=== PATIENT | female | born 1940 | race Caucasian/White ===

== ENCOUNTER 2019-11-24 16:51 | Emergency (ER) | payer OTHER ==
--- OUTSIDE RECORDS SUMMARY | 2019-11-24 16:54 | XMS REPORT ---
:1940 Author Organization [facility] Address [address] [place] [address] Dr. Siddiqui [address] [place] [id number] Care Team Providers Name Role Phone Unavailable Unavailable Unavailable Problems This patient has no known problems. Allergies, Adverse Reactions, Alerts This patient has no known allergies or adverse reactions. Medications This patient has no known medications.
--- NOTE | 2019-11-24 18:51 | RAD REPORT ---
EXAM DESCRIPTION: CT - Pelvis Wo Cont - 11/24/2019 6:14 pm CLINICAL HISTORY: FALL COMPARISON: Pelvis dated 11/24/2019; Hip Left 2 View dated 11/24/2019 TECHNIQUE: Axial 2 millimeter thick images of the pelvis were obtained with sagittal and coronal rec onstruction images generated and reviewed. The CT scan was performed using dose optimization techniques as appropriate to a performed exam incl uding one or more of the following: Automated exposure control, adjustment of the mA and/or kV accord ing to patient size (this includes techniques or standardized protocols for targeted exams where dose is matched to indication/reason for exam) and use of iterative reconstruction technique. FINDINGS: Degenerative and postsurgical changes are present in the lumbar spine. Bone graft and hete rotopic bone changes are present posteriorly with fusion across the posterior elements of L4-S1. L4-5 and L5-S1 disc space narrowing is present with partial fusion across the disc levels as well. There is evidence for transverse fracture across the superior aspect of the S1 body just below the S1 superior endplate. No extension posteriorly into the lamina or posterior elements. No extension late rally into the sacral ala. SI joint degenerative changes are present. No other evidence for pelvic fracture. No proximal femur fracture seen. Degenerative changes are pres ent at each hip joint. No AVN or acute femoral head finding. Prominent degenerative change at the pubic symphysis. No periarticular mass or hematoma. No suspicious soft tissue finding. IMPRESSION: A transverse fracture is present in the S1 body just below the endplate. No extension in to the sacral ala or posterior elements. Lower lumbar degenerative and postsurgical changes with posterior element fusion and partial fusion a cross the L4-5 and L5-S1 disc spaces.
--- NOTE | 2019-11-24 18:52 | RAD REPORT ---
EXAM DESCRIPTION: RAD - Hip Left 2 View - 11/24/2019 6:10 pm CLINICAL HISTORY: PAIN, fall COMPARISON: No comparisons FINDINGS: AP and frogleg views of the left hip were obtained. There is no fracture or dislocation. L eft hip joint degenerative changes are present relatively mild for age. No AVN or focal femoral head abnormality. No soft tissue abnormality. IMPRESSION: Left hip degenerative change with no acute finding.
--- NOTE | 2019-11-24 18:54 | RAD REPORT ---
EXAM DESCRIPTION: RAD - Pelvis - 11/24/2019 6:10 pm CLINICAL HISTORY: PAIN, fall history COMPARISON: No comparisons TECHNIQUE: AP imaging of the pelvis was obtained. FINDINGS: Lower lumbar degenerative changes are present. There is postsurgical change evident. Verte brae and posterior elements appear fused. This is favored to be postsurgical rather than ankylosing s pondylitis. Moderate SI joint degenerative change present. No fracture of the bony pelvis. Bilateral hip joint de generative change present relatively mild for age. No fracture or dislocation of either proximal femu r. No femoral head AVN change. No suspicious soft tissue finding. IMPRESSION: Pelvis, hip and lumbar spine degenerative and postsurgical change as detailed. No acute finding.
--- NOTE | 2019-11-24 19:50 | EDPHYS ---
Physician Documentation [facility] Name: Leonor Galvin Age: 79 yrs Sex: Female : 1940 Arrival Date: 11/24/2019 Time: 16:55 Bed 6 Private MD: ED Physician Keegan Nation HPI: 11/24 19:54 This 79 yrs old Female presents to ER via Wheelchair with complaints of Fall tw4 Injury. 19:54 Details of fall: The patient fell from a height. Onset: The symptoms/episode tw4 began/occurred today. Associated injuries: The patient sustained no obvious injury. The patient has not experienced similar symptoms in the past. Historical: - Allergies: 17:13 Sulfa (Sulfonamide Antibiotics); ca1 17:13 Morphine; ca1 - Home Meds: 17:13 letrozole oral oral [Active]; ca1 - PMHx: 17:13 Breast Cancer; Alzheimers; ca1 - PSHx: 17:13 Mastectomy, Left; ca1 - Immunization history:: Adult Immunizations up to date, Pneumococcal vaccine status is unknown, Flu vaccine is up to date. - Coronavirus screen:: The patient has NOT traveled to [place] in the past 14 days. The patient has NOT had contact with known/suspected case of Coronavirus?. - Social history:: Smoking status: Patient denies any tobacco usage or history of. - Ebola Screening: : Patient negative for fever greater than or equal to 101.5 degrees Fahrenheit, and additional compatible Ebola Virus Disease symptoms Patient denies exposure to infectious person Patient denies travel to an Ebola-affected area in the 21 days before illness onset No symptoms or risks identified at this time. ROS: 19:54 Constitutional: Negative for fever, chills, and weight loss, Eyes: Negative for injury, tw4 pain, redness, and discharge, Cardiovascular: Negative for chest pain, palpitations, and edema, Respiratory: Negative for shortness of breath, cough, wheezing, and pleuritic chest pain, Abdomen/GI: Negative for abdominal pain, nausea, vomiting, diarrhea, and constipation, MS/Extremity: Negative for injury and deformity, Skin: Negative for injury, rash, and discoloration, Neuro: Negative for headache, weakness, numbness, tingling, and seizure. 19:54 Back: Positive for injury or acute deformity, decreased range of motion, pain at rest, pain with movement, Negative for Exam: 19:54 Constitutional: This is a well developed, well nourished patient who is awake, alert, tw4 and in no acute distress. Head/Face: Normocephalic, atraumatic. Chest/axilla: Normal chest wall appearance and motion. Nontender with no deformity. No lesions are appreciated. Cardiovascular: Regular rate and rhythm with a normal S1 and S2. No gallops, murmurs, or rubs. Normal PMI, no JVD. No pulse deficits. Respiratory: Lungs have equal breath sounds bilaterally, clear to auscultation and percussion. No rales, rhonchi or wheezes noted. No increased work of breathing, no retractions or nasal flaring. Abdomen/GI: Soft, non-tender, with normal bowel sounds. No distension or tympany. No guarding or rebound. No evidence of tenderness throughout. MS/ Extremity: Pulses equal, no cyanosis. Neurovascular intact. Full, normal range of motion. Neuro: Awake and alert, GCS 15, oriented to person, place, time, and situation. Cranial nerves II-XII grossly intact. Motor strength 5/5 in all extremities. Sensory grossly intact. Cerebellar exam normal. Normal gait. 19:54 Back: pain, is absent, ROM is normal, normal spinal alignment noted. Vital Signs: 17:13 BP 139 / 93; Pulse 114; Resp 16 S; Temp 98; Pulse Ox 100% on R/A; Weight 69.85 kg (R); ca1 Height 5 ft. (152.40 cm) (R); 19:06 BP 151 / 85; Pulse 100; Resp 16; Pulse Ox 99% ; ah 19:30 BP 134 / 82; Pulse 100; Resp 16; Pulse Ox 98% on R/A; jb4 17:13 Body Mass Index 30.08 (69.85 kg, 152.40 cm) ca1 MDM: 17:45 Patient medically screened. tw4 20:05 Differential diagnosis: abrasion, closed head injury, contusion. Data reviewed: vital tw4 signs, nurses notes. Data interpreted: Pulse oximetry: Interpretation: normal. Counseling: I had a detailed discussion with the patient and/or guardian regarding: the historical points, exam findings, and any diagnostic results supporting the discharge/admit diagnosis. Special discussion: I discussed with the patient/guardian in detail that at this point there is no indication for admission to the hospital. It is understood, however, that if the symptoms persist or worsen the patient needs to return immediately for re-evaluation. 11/24 17:45 Order name: Hip Left 2 View XRAY tw4 11/24 17:45 Order name: Tib Fib Left XRAY tw4 11/24 18:03 Order name: Pelvis XRAY tw4 11/24 18:04 Order name: Pelvis Wo Cont CT tw4 11/24 19:14 Order name: Pelvis EDMS 11/24 19:22 Order name: Pelvis Wo Cont EDMS Administered Medications: 19:45 Drug: traMADol 50 mg {Note: Rass score 0.} Route: PO; 4 20:07 Follow up: Response: No adverse reaction; RASS: Alert and Calm (0) 4 Disposition: 11/24/19 19:50 Discharged to Home. Impression: Fracture of sacrum. - Condition is Stable. - Discharge Instructions: Vertebral Fracture, [id number]. - Prescriptions for Tylenol- Codeine #3 300-30 mg Oral Tablet - take 2 tablet by ORAL route every 6 hours As needed; 6 tablet. Tramadol 50 mg Oral Tablet - take 1 tablet by ORAL route every 8 hours as needed; 12 tablet. - Medication Reconciliation Form, Thank You Letter, Antibiotic Education, Prescription Opioid Use form. - Follow up: Private Physician; When: Upon discharge from the Emergency Department; Reason: If symptoms return, Recheck today's complaints, Continuance of care, Re-evaluation by your physician. - Problem is new. - Symptoms have improved. Signatures: Dispatcher [facility] Amador Durham RN RN jb4 Keegan Nation MD MD tw4 Shana Castellon RN RN ca1 Corrections: (The following items were deleted from the chart) 20:07 19:50 11/24/2019 19:50 Discharged to Home. Impression: Fracture of sacrum. Condition is jb4 Stable. Forms are Medication Reconciliation Form, Thank You Letter, Antibiotic Education, Prescription Opioid Use. Follow up: Private Physician; When: Upon discharge from the Emergency Department; Reason: If symptoms return, Recheck today's complaints, Continuance of care, Re-evaluation by your physician. Problem is new. Symptoms have improved. 4
--- NOTE | 2019-11-24 19:50 | ER ---
Nurse's Notes [facility] Name: Leonor Galvin Age: 79 yrs Sex: Female : 1940 Arrival Date: 11/24/2019 Time: 16:55 Bed 6 Private MD: Diagnosis: Fracture of sacrum Presentation: 11/24 17:06 Presenting complaint: Child states: On the Nov. she had a mechanical fell and ca1 hit the ground. She denied hitting her head. She has been sore, but yesterday and today, the pain has gotten worse and pain medications are not working anymore. Now, she is c/o of L hip and L leg pain. Transition of care: patient was not received from another setting of care. Onset of symptoms was November 24, 2019. Risk Assessment: Do you want to hurt yourself or someone else? Patient reports no desire to harm self or others. Initial Sepsis Screen: Does the patient meet any 2 criteria? No. Patient's initial sepsis screen is negative. Does the patient have a suspected source of infection? No. Patient's initial sepsis screen is negative. Care prior to arrival: None. 17:06 Method Of Arrival: Wheelchair ca1 17:06 Acuity: DARON 4 ca1 Historical: - Allergies: 17:13 Sulfa (Sulfonamide Antibiotics); ca1 17:13 Morphine; ca1 - Home Meds: 17:13 letrozole oral oral [Active]; ca1 - PMHx: 17:13 Breast Cancer; Alzheimers; ca1 - PSHx: 17:13 Mastectomy, Left; ca1 - Immunization history:: Adult Immunizations up to date, Pneumococcal vaccine status is unknown, Flu vaccine is up to date. - Coronavirus screen:: The patient has NOT traveled to [place] in the past 14 days. The patient has NOT had contact with known/suspected case of Coronavirus?. - Social history:: Smoking status: Patient denies any tobacco usage or history of. - Ebola Screening: : Patient negative for fever greater than or equal to 101.5 degrees Fahrenheit, and additional compatible Ebola Virus Disease symptoms Patient denies exposure to infectious person Patient denies travel to an Ebola-affected area in the 21 days before illness onset No symptoms or risks identified at this time. Screenin:49 Abuse screen: Denies threats or abuse. Nutritional screening: No deficits noted. Tuberculosis screening: No symptoms or risk factors identified. Fall Risk Secondary diagnosis (15 points) Alzheimer's, Gait- Weak (10 pts.). Total Quiles Fall Scale indicates No Risk (0-24 pts). Assessment: 17:43 General: Appears uncomfortable, Behavior is calm, cooperative. Pain: Complains of pain ah in pain in left hip and down left leg Pain radiates to left leg Pain currently is 8 out of 10 on a pain scale. Quality of pain is described as shooting, throbbing, Pain began November 15. Neuro: Level of Consciousness is awake, alert, obeys commands, Oriented to person, place, Recreation Engineer are equal bilaterally Gait is unsteady, Speech is normal, Facial symmetry appears normal, Pupils are PERRLA. Cardiovascular: Heart tones S1 S2 present Capillary refill < 3 seconds Pulses are palpable in right radial artery, right dorsalis pedis artery, left radial artery and left dorsalis pedis artery. Respiratory: Airway is patent is compromised Breath sounds are clear bilaterally. GI: No signs and/or symptoms were reported involving the gastrointestinal system. : No signs and/or symptoms were reported regarding the genitourinary system. EENT: No signs and/or symptoms were reported regarding the EENT system. Derm: Skin is intact, is healthy with good turgor. Musculoskeletal: Circulation, motion, and sensation intact. Capillary refill < 3 seconds. Injury Description:. 19:05 Reassessment: Patient appears in no apparent distress at this time. Patient and/or jb4 family updated on plan of care and expected duration. Pain level reassessed. Patient is alert, oriented x 3, equal unlabored respirations, skin warm/dry/pink. Patient denies pain at this time. 20:00 Reassessment: Patient appears in no apparent distress at this time. Patient and/or jb4 family updated on plan of care and expected duration. Pain level reassessed. Patient is alert, oriented x 3, equal unlabored respirations, skin warm/dry/pink. Pt's daughter verbalized understanding of d/c and follow up instructions. Denies questions or concerns. Assisted pt to car via wheelchair. Patient denies pain at this time. Vital Signs: 17:13 BP 139 / 93; Pulse 114; Resp 16 S; Temp 98; Pulse Ox 100% on R/A; Weight 69.85 kg (R); ca1 Height 5 ft. (152.40 cm) (R); 19:06 BP 151 / 85; Pulse 100; Resp 16; Pulse Ox 99% ; ah 19:30 BP 134 / 82; Pulse 100; Resp 16; Pulse Ox 98% on R/A; jb4 17:13 Body Mass Index 30.08 (69.85 kg, 152.40 cm) ca1 ED Course: 16:55 Patient arrived in ED. fj1 17:10 Triage completed. ca1 17:13 Arm band placed on right wrist. [facility] 17:24 Beverly Telles, RN is Primary Nurse. 17:35 Keegan Nation MD is Attending Physician. tw4 17:43 Patient has correct armband on for positive identification. Bed in low position. Call sv light in reach. Adult w/ patient. 19:02 Primary Nurse role handed off by Beverly Telles, RN jb 19:02 Amador Durham RN is Primary Nurse. jb4 19:07 Hip Left 2 View XRAY In Process Unspecified. EDMS 20:06 No provider procedures requiring assistance completed. Patient did not have IV access jb4 during this emergency room visit. Administered Medications: 19:45 Drug: traMADol 50 mg {Note: Rass score 0.} Route: PO; jb4 20:07 Follow up: Response: No adverse reaction; RASS: Alert and Calm (0) jb4 Outcome: 19:50 Discharge ordered by . tw4 20:06 Discharged to home via wheelchair, with family. jb4 20:06 Condition: stable 20:06 Discharge instructions given to patient, family, Instructed on discharge instructions, follow up and referral plans. Demonstrated understanding of instructions, follow-up care, medications, Prescriptions given X 2. 20:07 Patient left the ED. jb4 Signatures: Dispatcher [employer] [facility] Mena Steinberg RN RN Amador Durham RN RN [facility] Keegan Nation MD MD [facility] Shana Castellon RN RN ca1 James, Frank [facility] Beverly Telles RN RN
[2019-11-24] MEDS ORDERED: TRAMADOL HCL 50 MG TAB ONE (19:51)
[2019-11-24 20:35] VITALS: TEMP 98
[2019-11-24 20:38] VITALS: BP 134/82; O2SAT 98
== END 2019-11-24 20:07 | disposition home or self-care (01) ==
LOC: ER 16:51
DX: S32.10XA Unspecified fracture of sacrum, initial encounter for closed fracture (principal); W19.XXXA Unspecified fall, initial encounter; Y93.9 Activity, unspecified; Y92.9 Unspecified place or not applicable; G30.9 Alzheimer's disease, unspecified; F02.80 Dementia in other diseases classified elsewhere, unspecified severity, without behavioral disturbance, psychotic disturbance, mood disturbance, and anxiety; Z85.3 Personal history of malignant neoplasm of breast; Z90.12 Acquired absence of left breast and nipple
CPT/HCPCS: 72170; 72192; 99283

== ENCOUNTER 2019-12-04 08:59 | Inpatient (IN) | payer OTHER ==
--- OUTSIDE RECORDS SUMMARY | 2019-12-04 09:02 | XMS REPORT ---
:1940 [facility] Organization [facility] Address [address] [place] [address] Dr. Siddiqui [address] [place] [address] Care Team Providers Name Role Phone Unavailable Unavailable Unavailable Problems This patient has no known problems. Allergies, Adverse Reactions, Alerts This patient has no known allergies or adverse reactions. Medications This patient has no known medications.
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
--- NOTE | 2019-12-04 09:50 | ER ---
Nurse's Notes [facility] Name: Leonor Galvin Age: 79 yrs Sex: Female : 1940 Arrival Date: 12/04/2019 Time: 09:03 Bed 5 Private MD: Aniket Downey E Diagnosis: Dyspnea;Pneumonia due to other specified bacteria;Fever, unspecified;Elevated white blood cell count Presentation: 12/04 09:10 Chief complaint: Patient's son or daughter states: "she had a fever of 101.6 F this aa5 morning and she had peed all over herself, she's also had a cough for the last few days". 09:10 Coronavirus screen: The patient has NOT traveled to [place] in the past 14 days. The aa5 patient has NOT had contact with known and/or suspected case of Coronavirus. Ebola Screen: Patient negative for fever greater than or equal to 101.5 degrees Fahrenheit, and additional compatible Ebola Virus Disease symptoms. Initial Sepsis Screen: Does the patient meet any 2 criteria? HR > 90 bpm. Does the patient have a suspected source of infection? Yes: Productive cough/pneumonia. Risk Assessment: Do you want to hurt yourself or someone else? Unable to obtain. 09:10 Method Of Arrival: Wheelchair aa5 09:10 Acuity: DARON 3 aa5 09:10 Onset of symptoms was December 04, 2019. sv Historical: - Allergies: 09:16 Morphine; aa5 09:16 Sulfa (Sulfonamide Antibiotics); aa5 - PMHx: 09:16 Alzheimers; breast cancer; S1 fracture; aa5 - PSHx: 09:16 Mastectomy, Left; aa5 - Immunization history:: Pneumococcal vaccine status is unknown, Flu vaccine is up to date. - Social history:: Smoking status: Patient denies any tobacco usage or history of. Screenin:25 Abuse screen: Denies threats or abuse. Denies injuries from another. Nutritional sv screening: No deficits noted. Tuberculosis screening: No symptoms or risk factors identified. Fall Risk None identified. Assessment: 09:40 General: Appears in no apparent distress. uncomfortable, well developed, Behavior is sv calm, cooperative, appropriate for age. Pain: Complains of pain in chest Pain currently is 5 out of 10 on a pain scale. Is intermittent, Aggravated by coughing. Neuro: Level of Consciousness is awake, alert, obeys commands, Oriented to person, place, time, situation, Moves all extremities. Full function Gait is steady. Cardiovascular: Heart tones S1 S2 present Patient's skin is warm and dry. Rhythm is sinus tachycardia. Respiratory: Reports shortness of breath on exertion cough that is productive, pain with cough Airway is patent Respiratory effort is even, unlabored, Respiratory pattern is regular, symmetrical, Breath sounds are coarse bilaterally. Derm: Skin is intact, Skin is pink, warm \\T\\ dry. Musculoskeletal: Range of motion: intact in all extremities. 10:10 Reassessment: Patient appears in no apparent distress at this time. Patient and/or sv family updated on plan of care and expected duration. Pain level reassessed. Patient is alert, oriented x 3, equal unlabored respirations, skin warm/dry/pink. 11:13 Reassessment: Patient appears in no apparent distress at this time. Patient and/or sv family updated on plan of care and expected duration. Pain level reassessed. Patient is alert, oriented x 3, equal unlabored respirations, skin warm/dry/pink. Vital Signs: 09:10 BP 116 / 64; Pulse 103; Resp 16 S; Temp 99.6(O); Pulse Ox 96% on R/A; aa5 09:40 Weight 69 kg; sv 11:10 BP 102 / 75; Pulse 112; Resp 13; Pulse Ox 95% on R/A; sv ED Course: 09:03 Patient arrived in ED. mr 09:03 Aniket Downey MD is Private Physician. mr 09:03 Johnson Casillas MD is Attending Physician. linda 09:10 Arm band placed on. aa5 09:15 Triage completed. aa5 09:40 Patient has correct armband on for positive identification. Placed in gown. Bed in low sv position. Call light in reach. Side rails up X2. Adult w/ patient. millwright helper on. Pulse ox on. NIBP on. Door closed. Warm blanket given. Head of bed elevated. 09:48 Manoj Gracia MD is Hospitalizing Provider. linda 09:55 First set of blood cultures drawn by mo. Inserted saline lock: 22 gauge in right sv forearm, using aseptic technique. ,using aseptic technique. diffusics Blood collected. Flushed right forearm with 5 ml normal saline. 09:57 X-ray(s) taken. sv 10:01 Mena Steinberg, RN is Primary Nurse. sv 10:06 XRAY Chest (1 view) In Process Unspecified. EDMS 10:10 Second set of blood cultures drawn by mo. sv 10:12 EKG done, by environmental field services technician. reviewed by Johnson Casillas MD. at1 10:52 Flu and/or RSV swab sent to lab. jb1 11:13 Awaiting bed assignment. sv 11:27 No provider procedures requiring assistance completed. Patient admitted, IV remains in sv place. intact. Administered Medications: 10:10 Drug: SOLU-Medrol 125 mg Route: IVP; Site: right forearm; sv 10:56 Follow up: Response: No adverse reaction sv 10:10 Drug: Xopenex 3.75 mg Route: Inhalation; sv 10:12 Drug: Pepcid 20 mg Route: IVP; Site: right forearm; sv 10:58 Follow up: Response: No adverse reaction sv 10:14 Drug: Rocephin 2 grams Route: IV; Rate: per protocol; Site: right forearm; sv 10:18 Follow up: Response: No adverse reaction; IV Status: Completed infusion; IV Intake: 20mlsv 10:20 Drug: Zithromax 500 mg Route: IVPB; Infused Over: 1 hrs; Site: right forearm; sv 11:20 Follow up: Response: No adverse reaction; IV Status: Completed infusion; IV Intake: sv 250ml 10:30 Drug: NS 0.9% (30 ml/kg) 30 ml/kg Route: IV; Rate: bolus; Site: right forearm; sv 10:47 Drug: Tussionex Pennkinetic ER 5 ml Route: PO; sv 10:58 Follow up: Response: No adverse reaction sv Intake: 10:18 IV: 20ml; Total: 20ml. sv 11:20 IV: 250ml; Total: 270ml. sv Outcome: 09:49 Decision to Hospitalize by Provider. linda 11:27 Admitted to Tele accompanied by tech, family with patient, via stretcher, room 230, sv with chart, Report called to Milagro SUE 11:27 Condition: stable 11:27 Instructed on the need for admit. 11:37 Patient left the ED. sv Signatures: Dispatcher [employer] EDMS Jhonny Batista jb1 Mena Steinberg, LINETTE RN Johnson Hernandez MD MD cha Rivera, Suzanne mr Priscilla Fairbanks, LINETTE RN aa5 Kenzie Mcneal, pharmacy intake technician EK Tat1
--- NOTE | 2019-12-04 09:51 | EDPHYS ---
Physician Documentation [facility] Name: Leonor Galvin Age: 79 yrs Sex: Female : 1940 Arrival Date: 12/04/2019 Time: 09:03 Bed 5 Private MD: Aniket Downey E ED Physician Johnson Casillas HPI: 12/04 09:42 This 79 yrs old Female presents to ER via Wheelchair with complaints of linda Fever, Cough. 09:42 The patient reports fever, not measured (subjective). Onset: The symptoms/episode linda began/occurred 2 day(s) ago. Modifying factors: there are no obvious modifying factors. Associated signs and symptoms: Pertinent positives: chills, cough. Severity of symptoms: At their worst the symptoms were mild moderate in the emergency department the symptoms are unchanged. The patient has not experienced similar symptoms in the past. Historical: - Allergies: 09:16 Morphine; aa5 09:16 Sulfa (Sulfonamide Antibiotics); aa5 - PMHx: 09:16 Alzheimers; breast cancer; S1 fracture; aa5 - PSHx: 09:16 Mastectomy, Left; aa5 - Immunization history:: Pneumococcal vaccine status is unknown, Flu vaccine is up to date. - Social history:: Smoking status: Patient denies any tobacco usage or history of. ROS: 09:43 Constitutional: Negative for fever, chills, and weight loss, Eyes: Negative for injury, linda pain, redness, and discharge, ENT: Negative for injury, pain, and discharge, Neck: Negative for injury, pain, and swelling, Cardiovascular: Negative for chest pain, palpitations, and edema, Abdomen/GI: Negative for abdominal pain, nausea, vomiting, diarrhea, and constipation, Back: Negative for injury and pain, : Negative for injury, bleeding, discharge, and swelling, MS/Extremity: Negative for injury and deformity, Skin: Negative for injury, rash, and discoloration, Neuro: Negative for headache, weakness, numbness, tingling, and seizure, Psych: Negative for depression, anxiety, suicide ideation, homicidal ideation, and hallucinations, Allergy/Immunology: Negative for hives, rash, and allergies, Endocrine: Negative for neck swelling, polydipsia, polyuria, polyphagia, and marked weight changes, Hematologic/Lymphatic: Negative for swollen nodes, abnormal bleeding, and unusual bruising. 09:43 Respiratory: Positive for cough, shortness of breath, at rest. 09:43 MS/extremity: Negative for acute changes. Exam: 09:43 Head/Face: Normocephalic, atraumatic. Eyes: Pupils equal round and reactive to light, linda extra-ocular motions intact. Lids and lashes normal. Conjunctiva and sclera are non-icteric and not injected. Cornea within normal limits. Periorbital areas with no swelling, redness, or edema. ENT: Nares patent. No nasal discharge, no septal abnormalities noted. Tympanic membranes are normal and external auditory canals are clear. Oropharynx with no redness, swelling, or masses, exudates, or evidence of obstruction, uvula midline. Mucous membranes moist. Neck: Trachea midline, no thyromegaly or masses palpated, and no cervical lymphadenopathy. Supple, full range of motion without nuchal rigidity, or vertebral point tenderness. No Meningismus. Chest/axilla: Normal chest wall appearance and motion. Nontender with no deformity. No lesions are appreciated. Abdomen/GI: Soft, non-tender, with normal bowel sounds. No distension or tympany. No guarding or rebound. No evidence of tenderness throughout. Back: No spinal tenderness. No costovertebral tenderness. Full range of motion. Female : Normal external genitalia. Skin: Warm, dry with normal turgor. Normal color with no rashes, no lesions, and no evidence of cellulitis. MS/ Extremity: Pulses equal, no cyanosis. Neurovascular intact. Full, normal range of motion. Neuro: Awake and alert, GCS 15, oriented to person, place, time, and situation. Cranial nerves II-XII grossly intact. Motor strength 5/5 in all extremities. Sensory grossly intact. Cerebellar exam normal. Normal gait. Psych: Awake, alert, with orientation to person, place and time. Behavior, mood, and affect are within normal limits. 09:43 Constitutional: The patient appears febrile. 09:43 Cardiovascular: Rate: tachycardic, Rhythm: regular, Pulses: Pulses are 4+ in bilateral radial, brachial, femoral, popliteal, posterior tibial and and dorsalis pedis arteries.. Heart sounds: normal, normal S1and S2, no S3 or S4, no murmur, no rub, no gallop, Edema: is not appreciated, JVD: is not appreciated. Vital Signs: 09:10 BP 116 / 64; Pulse 103; Resp 16 S; Temp 99.6(O); Pulse Ox 96% on R/A; aa5 09:40 Weight 69 kg; sv 11:10 BP 102 / 75; Pulse 112; Resp 13; Pulse Ox 95% on R/A; sv MDM: 09:[address] [facility] 09:43 Data reviewed: vital signs, nurses notes, lab test result(s), EKG, radiologic studies, linda plain films. 12/04 09:39 Order name: Basic Metabolic Panel; Complete Time: 10:57 [facility] 12/04 09:39 Order name: CBC with Diff; Complete Time: 10:57 [facility] 12/04 09:39 Order name: LFT's; Complete Time: 10:57 [facility] 12/04 09:39 Order name: Magnesium; Complete Time: 10:57 [facility] 12/04 09:39 Order name: NT PRO-BNP; Complete Time: 10:57 [facility] 12/04 09:39 Order name: PT-INR; Complete Time: 10:57 [facility] 12/04 09:39 Order name: Troponin (emerg Dept Use Only); Complete Time: 10:57 [facility] 12/04 09:39 Order name: Amylase, Serum; Complete Time: 10:57 [facility] 12/04 09:39 Order name: Blood Culture Adult (2) [facility] 12/04 09:39 Order name: Ckmb; Complete Time: 10:57 [facility] 12/04 09:39 Order name: CPK; Complete Time: 10:57 [facility] 12/04 09:39 Order name: Lactate; Complete Time: 10:57 [facility] 12/04 09:39 Order name: Lipase; Complete Time: 10:57 [facility] 12/04 09:39 Order name: Procalcitonin; Complete Time: 10:57 [facility] 12/04 09:39 Order name: XRAY Chest (1 view); Complete Time: 10:57 [facility] 12/04 09:39 Order name: Urine Microscopic Only [facility] 12/04 10:10 Order name: PTT, Activated Partial Thromb; Complete Time: 10:57 EDMS 12/04 10:44 Order name: Urinalysis EDTX 12/04 10:44 Order name: CBC with Automated Diff EDMS 12/04 10:44 Order name: CBC with Automated Diff EDMS 12/04 10:44 Order name: Comprehensive Metabolic Panel [facility] 12/04 10:44 Order name: Comprehensive Metabolic Panel [facility] 12/04 10:44 Order name: Influenza Screen (A [facility] 12/04 09:39 Order name: EKG; Complete Time: 09:42 [facility] 12/04 09:39 Order name: Cardiac monitoring; Complete Time: 09:49 [facility] 12/04 09:39 Order name: EKG - Nurse/Tech; Complete Time: 09:49 [facility] 12/04 09:39 Order name: IV Saline Lock; Complete Time: 10:27 [facility] 12/04 09:39 Order name: Labs collected and sent; Complete Time: 10:27 [facility] 12/04 09:39 Order name: O2 Per Protocol; Complete Time: 09:49 [facility] 12/04 09:39 Order name: O2 Sat Monitoring; Complete Time: 09:49 [facility] 12/04 09:39 Order name: IV Saline Lock - Large Bore; Complete Time: 10:27 [facility] 12/04 10:43 Order name: Heart Healthy EDTX Administered Medications: 10:10 Drug: SOLU-Medrol 125 mg Route: IVP; Site: right forearm; sv 10:56 Follow up: Response: No adverse reaction sv 10:10 Drug: Xopenex 3.75 mg Route: Inhalation; sv 10:12 Drug: Pepcid 20 mg Route: IVP; Site: right forearm; sv 10:58 Follow up: Response: No adverse reaction sv 10:14 Drug: Rocephin 2 grams Route: IV; Rate: per protocol; Site: right forearm; sv 10:18 Follow up: Response: No adverse reaction; IV Status: Completed infusion; IV Intake: 20mlsv 10:20 Drug: Zithromax 500 mg Route: IVPB; Infused Over: 1 hrs; Site: right forearm; sv 11:20 Follow up: Response: No adverse reaction; IV Status: Completed infusion; IV Intake: sv 250ml 10:30 Drug: NS 0.9% (30 ml/kg) 30 ml/kg Route: IV; Rate: bolus; Site: right forearm; sv 10:47 Drug: Tussionex Pennkinetic ER 5 ml Route: PO; sv 10:58 Follow up: Response: No adverse reaction sv Disposition: 12/04/19 09:49 Hospitalization ordered by Manoj Gracia for Inpatient Admission. Preliminary diagnosis are Dyspnea, Pneumonia due to other specified bacteria, Fever, unspecified, Elevated white blood cell count. - Bed requested for Telemetry/MedSurg (Inpatient). - Status is Inpatient Admission. sv - Condition is Fair. - Problem is new. - Symptoms have improved. Signatures: Dispatcher [employer] EDTX Mena Steinberg RN RN sv Woody, Diana, RN RN dw Anderson, Corey, MD MD cha Calderon, Audri RN RN aa5 Corrections: (The following items were deleted from the chart) 10:09 09:41 PTT, ACTIVATED+COAG.LAB.BRZ ordered. EDTX EDMS 10:27 09:39 Accucheck ordered. [facility] 11:20 09:49 Hospitalization Ordered by Manoj Gracia MD for Inpatient Admission. Preliminary diagnosis is Dyspnea; Pneumonia due to other specified bacteria; Fever, unspecified. Bed requested for Telemetry/MedSurg (Inpatient). Status is Inpatient Admission. Condition is Fair. Problem is new. Symptoms have improved. [facility] 11:28 11:20 12/04/2019 09:49 Hospitalization Ordered by Manoj Gracia MD for Inpatient linda Admission. Preliminary diagnosis is Dyspnea; Pneumonia due to other specified bacteria; Fever, unspecified. Bed requested for Telemetry/MedSurg (Inpatient). Status is Inpatient Admission. Condition is Fair. Problem is new. Symptoms have improved. 11:37 11:28 12/04/2019 09:49 Hospitalization Ordered by Manoj Gracia MD for Inpatient sv Admission. Preliminary diagnosis is Dyspnea; Pneumonia due to other specified bacteria; Fever, unspecified; Elevated white blood cell count. Bed requested for Telemetry/MedSurg (Inpatient). Status is Inpatient Admission. Condition is Fair. Problem is new. Symptoms have improved. linda
[2019-12-04] MEDS ORDERED: METHYLPREDNISOLONE 125 MG INJ ONE (09:53)
[2019-12-04] MEDS ORDERED: LEVALBUTEROL 1.25 MG/3 ML NEB ONE (09:53)
[2019-12-04] MEDS ORDERED: FAMOTIDINE 20 MG/2 ML VIAL IV ONE ×2 (09:53→09:54)
[2019-12-04] MEDS ORDERED: CEFTRIAXONE/SWI 1gm 1 GM/10 ML SYR ONE ×2 (09:54→10:28)
[2019-12-04] MEDS ORDERED: AZITHROMYCIN IV 500 MG in NA CHLORIDE 0.9% 250 ML IVPB ONE (10:00)
[2019-12-04] MEDS ORDERED: CEFTRIAXONE/SWI 2gm 2 GM/20 ML SYR IV ONE (10:00)
[2019-12-04 10:08] LABS: Absolute Lymphocytes (CBC) 1.7 K/uL (0.7-4.9); Basophils % 0.2 % (0-1.3); Hematocrit 39.1 % (36.0-45.0); Lymphocytes % 12.2 % (15.3-44.8); MPV 7.3 fL (7.6-11.3); RBC Red Blood Cell Count 4.08 M/uL (3.86-4.86)
[2019-12-04 10:16] LABS: Protime INR 1.22
--- NOTE | 2019-12-04 10:22 | RAD REPORT ---
EXAM DESCRIPTION: RAD - Chest Single View - 12/04/2019 10:04 am CLINICAL HISTORY: COUGH Chest pain. COMPARISON: No comparisons FINDINGS: Portable technique limits examination quality. The lungs are grossly clear. The heart is normal in size. No displaced fractures. IMPRESSION: No acute intrathoracic process suspected.
[2019-12-04 10:32] LABS: ALT/SGPT 30 U/L (12-78); AST/SGOT 41 U/L (15-37); Albumin 3.6 g/dL (3.4-5.0); Alkaline Phosphatase 93 U/L (45-117); Amylase Level 45 U/L (25-115); BUN Blood Urea Nitrogen 15 mg/dL (7-18); Bicarbonate 24 mmol/L (21-32); Bilirubin Direct 0.2 mg/dL (0-0.2); Bilirubin Total 0.8 mg/dL (0.2-1.0); CKMB Creatine Kinase MB 2.9 ng/mL (0.3-3.6); Creatine Phosphokinase 398 U/L (26-192); Glucose Level 170 mg/dL (74-106); Lipase 195 U/L (73-393); Magnesium 2.1 mg/dL (1.8-2.4); NT PRO-BNP 435 pg/mL (<450); Potassium 3.5 mmol/L (3.5-5.1); Protein, Total 8.8 g/dL (6.4-8.2); Sodium Level 135 mmol/L (136-145); Troponin (Emerg Dept Use Only) < 0.02 ng/mL (0.0-0.045)
[2019-12-04] MEDS ORDERED: NA CHLORIDE 0.9% 2,000 ML ONE (10:34)
[2019-12-04] MEDS ORDERED: ONDANSETRON 4 MG/2 ML VIAL IV PRN (10:38)
[2019-12-04] MEDS ORDERED: HYDROCODONE/CHLORPHEN 5 ML/OSYR ONE (10:49)
--- NOTE | 2019-12-04 11:30 | EKG ---
Test Date: 2019-12-04 Test Time: 09:52:31 Cable Respooler: KIRSTEN MEASUREMENT RESULTS: Intervals: Rate: 93 IL: 172 QRSD: 76 QT: 374 QTc: 465 [place]: P: 35 IL: 172 QRS: -14 T: 38 INTERPRETIVE STATEMENTS: Normal sinus rhythm Normal ECG No previous ECG available for comparison Electronically Signed On 12-04-19 11:29:08 ROUTE CONTRACTOR by Storm Akhtar
--- NOTE | 2019-12-04 12:57 | P.HP ---
Certification for Inpatient Patient admitted to: Inpatient With expected LOS: >2 Midnights Patient will require the following post-hospital care: None Practitioner: I am a practitioner with admitting privileges, knowledge of patient current condition, hospital course, and medical plan of care. Services: Services provided to patient in accordance with Admission requirements found in Title 42 Section 412.3 of the Code of Federal Regulations Patient History Date of Service: 12/04/19 Reason for admission: Fever , cough History of Present Illness: 79 yrs old Female with past medical history of Alzheimer's dementia presented with fever and cough which has been going on for the last 3 days and has been progressively worsening and was brought to ER . Fever is subjective intermittent, not associated with chills, cough is productive with mucoid expectoration, denies any hemoptysis . The patient is a poor historian because of the dementia. Hence most of the history is obtained from the chart review and also talking to the ER physician and the family. No sick contacts No recent travel Patient was assessed in the ER and was found to have leukocytosis, elevated procalcitonin and clinically suspicious of pneumonia right lower lobe and was admitted for further management. Allergies morphine Allergy (Verified 12/04/19 09:54) UNK Sulfa (Sulfonamide Antibiotics) Allergy (Verified 12/04/19 09:54) UNK Home medications list reviewed: Yes - Past Medical/Surgical History Has patient received pneumonia vaccine in the past: Yes Past Medical History: Reviewed- Non-Contributory -: Dementia -: Back pain Past Surgical History: Reviewed- Non-Contributory -: Cervical neck surgery -: Knee replacement - Family History Family History: Reviewed- Non-Contributory - Social History Smoking Status: Never smoker Review of Systems 10-point ROS is otherwise unremarkable Physical Examination - Vital Signs Temperature: 99.6 F Blood Pressure: 102/75 Pulse: 112 Respirations: 13 - Physical Exam General: Alert, In no apparent distress, Demented HEENT: Atraumatic, Normocephalic Neck: Supple, 2+ carotid pulse no bruit Respiratory: Diminished, Crackles/rales, Expiratory wheezes Cardiovascular: No edema, Regular rate/rhythm Capillary refill: <2 Seconds Gastrointestinal: Soft and benign, W/out hepatosplenomegaly Musculoskeletal: No clubbing, No swelling Integumentary: No rashes Neurological: Normal gait, Normal strength at 5/5 x4 extr Lymphatics: No axilla or inguinal lymphadenopathy Urinary: Other (No bladder distention) External genitalia: Deferred Rectal: Deferred - Studies Laboratory Data (last 24 hrs) 12/04/19 09:55: APTT Cancelled 12/04/19 09:55: PT 14.3 H, INR 1.22, APTT 28.9 12/04/19 09:55: WBC 14.2 H, Hgb 12.9, Hct 39.1, Plt Count 244 12/04/19 09:55: Sodium 135 L, Potassium 3.5, BUN 15, Creatinine 1.04, Glucose 170 H, Magnesium 2.1, Total Bilirubin 0.8, AST 41 H, ALT 30, Alkaline Phosphatase 93, Amylase 45, Lipase 195 Laboratory Last Values WBC 14.2 K/uL (4.3-10.9) H 12/04/19 09:55 RBC 4.08 M/uL (3.86-4.86) 12/04/19 09:55 Hgb 12.9 g/dL (12.0-15.0) 12/04/19 09:55 Hct 39.1 % (36.0-45.0) 12/04/19 09:55 MCV 95.9 fL (80-100) 12/04/19 09:55 MCH 31.7 pg (27.0-35.0) 12/04/19 09:55 MCHC 33.0 g/dL (32.0-36.0) 12/04/19 09:55 RDW 13.8 % (12.1-15.2) 12/04/19 09:55 Plt Count 244 K/uL (152-406) 12/04/19 09:55 MPV 7.3 fL (7.6-11.3) L 12/04/19 09:55 Neutrophils % 79.7 % (41.7-73.7) H 12/04/19 09:55 Lymphocytes % 12.2 % (15.3-44.8) L 12/04/19 09:55 Monocytes % 7.9 % (3.3-12.3) 12/04/19 09:55 Eosinophils % 0.0 % (0-4.4) 12/04/19 09:55 Basophils % 0.2 % (0-1.3) 12/04/19 09:55 Absolute Neutrophils 11.4 K/uL (1.8-8.0) H 12/04/19 09:55 Absolute Lymphocytes 1.7 K/uL (0.7-4.9) 12/04/19 09:55 Absolute Monocytes 1.1 K/uL (0.1-1.3) 12/04/19 09:55 Absolute Eosinophils 0.0 K/uL (0-0.5) 12/04/19 09:55 Absolute Basophils 0.0 K/uL (0-0.5) 12/04/19 09:55 PT 14.3 SECONDS (9.5-12.5) H 12/04/19 09:55 INR 1.22 12/04/19 09:55 APTT 28.9 SECONDS (24.3-36.9) 12/04/19 09:55 Sodium 135 mmol/L (136-145) L 12/04/19 09:55 Potassium 3.5 mmol/L (3.5-5.1) 12/04/19 09:55 Chloride 100 mmol/L (98-107) 12/04/19 09:55 Carbon Dioxide 24 mmol/L (21-32) 12/04/19 09:55 BUN 15 mg/dL (7-18) 12/04/19 09:55 Creatinine 1.04 mg/dL (0.55-1.3) 12/04/19 09:55 Estimated GFR 51 mL/min (=/>90) L 12/04/19 09:55 Glucose 170 mg/dL (74-106) H 12/04/19 09:55 Lactic Acid 1.9 mmol/L (0.4-2.0) 12/04/19 09:55 Calcium 8.9 mg/dL (8.5-10.1) 12/04/19 09:55 Magnesium 2.1 mg/dL (1.8-2.4) 12/04/19 09:55 Total Bilirubin 0.8 mg/dL (0.2-1.0) 12/04/19 09:55 Direct Bilirubin 0.2 mg/dL (0-0.2) 12/04/19 09:55 AST 41 U/L (15-37) H 12/04/19 09:55 ALT 30 U/L (12-78) 12/04/19 09:55 Alkaline Phosphatase 93 U/L (45-117) 12/04/19 09:55 Creatine Kinase 398 U/L (26-192) H 12/04/19 09:55 CK-MB (CK-2) 2.9 ng/mL (0.3-3.6) 12/04/19 09:55 Rapid Troponin I < 0.02 ng/mL (0.0-0.045) 12/04/19 09:55 NT-Pro-B Natriuret Pep 435 pg/mL (<450) 12/04/19 09:55 Serum Total Protein 8.8 g/dL (6.4-8.2) H 12/04/19 09:55 Albumin 3.6 g/dL (3.4-5.0) 12/04/19 09:55 Globulin 5.2 g/dL (2.3-3.5) H 12/04/19 09:55 Albumin/Globulin Ratio 0.7 (1.1-1.8) L 12/04/19 09:55 Amylase 45 U/L (25-115) 12/04/19 09:55 Lipase 195 U/L (73-393) 12/04/19 09:55 Procalcitonin 0.59 ng/mL (<0.50) H 12/04/19 09:55 Assessment and Plan - Problems (Diagnosis) (1) Right lower lobe pneumonia Current Visit: Yes Status: Acute Qualifiers: Pneumonia type: due to unspecified organism Qualified Code(s): J18.9 - Pneumonia, unspecified organism (2) Alzheimer's dementia Current Visit: Yes Status: Chronic (3) Chronic back pain Current Visit: Yes Status: Chronic - Plan Right lower lobe pneumonia Alzheimer's dementia Leukocytosis Chronic back pain Plan Monitor under telemetry IV antibiotics Mucinex Continue home medications and titrate as needed Pain control antitussives Will get a repeat x-ray in a.m. GI/DVT prophylaxis - Advance Directives Does patient have a Living Will: No Does patient have a Durable POA for Healthcare: Yes Time Spent Managing Pts Care (In Minutes): 45
[2019-12-04 13:12] VITALS: BMI 25.9
[2019-12-04] MEDS: ALBUTEROL 2.5 MG/3 ML NEB SOL NEB SCH ×2 (13:58→19:45)
[2019-12-04] MEDS: IPRATROPIUM BROM 0.5MG/2.5ML NEB SCH ×2 (13:58→19:45)
[2019-12-04] MEDS ORDERED: POTASSIUM CL SA 10 MEQ TAB PO ONE (21:00)
[2019-12-04] MEDS: HYDROCODONE/CHLORPHEN 5 ML/OSYR PO PRN (21:46)
[2019-12-05] MEDS: ALBUTEROL 2.5 MG/3 ML NEB SOL NEB SCH ×4 (01:51→20:05)
[2019-12-05] MEDS: IPRATROPIUM BROM 0.5MG/2.5ML NEB SCH ×4 (01:51→20:05)
[2019-12-05 05:58] LABS: Absolute Lymphocytes (CBC) 2.1 K/uL (0.7-4.9); Hematocrit 33.7 % (36.0-45.0); Lymphocytes % 13.5 % (15.3-44.8); MPV 7.3 fL (7.6-11.3); RBC Red Blood Cell Count 3.44 M/uL (3.86-4.86)
[2019-12-05 06:08] LABS: Albumin 3.1 g/dL (3.4-5.0); Bilirubin Total 0.5 mg/dL (0.2-1.0); Potassium 3.9 mmol/L (3.5-5.1); Protein, Total 7.4 g/dL (6.4-8.2)
[2019-12-05] MEDS: CEFTRIAXONE/SWI 1gm 1 GM/10 ML SYR IV SCH (07:39)
[2019-12-05] MEDS: ENOXAPARIN 40 MG/0.4 ML SQ SCH (07:39)
[2019-12-05] MEDS: HYDROCODONE/CHLORPHEN 5 ML/OSYR PO PRN ×2 (07:55→20:05)
[2019-12-05] MEDS: AZITHROMYCIN IV 500 MG in NA CHLORIDE 0.9% 250 ML IVPB SCH (08:00)
[2019-12-05] MEDS ORDERED: POTASSIUM CL SA 10 MEQ TAB PO ONE (08:00)
--- NOTE | 2019-12-05 10:07 | P.PN ---
Subjective Date of Service: 12/05/19 Chief Complaint: Fever , cough Subjective: No new changes, Improving Review of Systems 10-point ROS is otherwise unremarkable Physical Examination - Vital Signs Temperature: 97.0 F Blood Pressure: 135/79 Pulse: 79 Respirations: 20 Pulse Ox (%): 100 - Physical Exam General: Alert, In no apparent distress HEENT: Atraumatic, Normocephalic Neck: Supple Respiratory: Normal air movement, Crackles/rales Cardiovascular: Normal pulses, Regular rate/rhythm Capillary refill: <2 Seconds Gastrointestinal: Soft and benign, W/out hepatosplenomegaly Musculoskeletal: No clubbing, No swelling Integumentary: No rashes Neurological: Normal speech, Normal strength at 5/5 x4 extr Lymphatics: No axilla or inguinal lymphadenopathy External genitalia: Deferred Rectal: Deferred - Studies Laboratory Data (last 24 hrs) 12/04/19 09:55: APTT Cancelled 12/04/19 09:55: PT 14.3 H, INR 1.22, APTT 28.9 12/04/19 09:55: WBC 14.2 H, Hgb 12.9, Hct 39.1, Plt Count 244 12/04/19 09:55: Sodium 135 L, Potassium 3.5, BUN 15, Creatinine 1.04, Glucose 170 H, Magnesium 2.1, Total Bilirubin 0.8, AST 41 H, ALT 30, Alkaline Phosphatase 93, Amylase 45, Lipase 195 Laboratory Last Values WBC 15.4 K/uL (4.3-10.9) H 12/05/19 05:23 RBC 3.44 M/uL (3.86-4.86) L 12/05/19 05:23 Hgb 11.2 g/dL (12.0-15.0) L 12/05/19 05:23 Hct 33.7 % (36.0-45.0) L 12/05/19 05:23 MCV 98.2 fL (80-100) 12/05/19 05:23 MCH 32.6 pg (27.0-35.0) 12/05/19 05:23 MCHC 33.3 g/dL (32.0-36.0) 12/05/19 05:23 RDW 14.1 % (12.1-15.2) 12/05/19 05:23 Plt Count 202 K/uL (152-406) 12/05/19 05:23 MPV 7.3 fL (7.6-11.3) L 12/05/19 05:23 Neutrophils % 79.2 % (41.7-73.7) H 12/05/19 05:23 Lymphocytes % 13.5 % (15.3-44.8) L 12/05/19 05:23 Monocytes % 7.3 % (3.3-12.3) 12/05/19 05:23 Eosinophils % 0.0 % (0-4.4) 12/05/19 05:23 Basophils % 0.0 % (0-1.3) 12/05/19 05:23 Absolute Neutrophils 12.2 K/uL (1.8-8.0) H 12/05/19 05:23 Absolute Lymphocytes 2.1 K/uL (0.7-4.9) 12/05/19 05:23 Absolute Monocytes 1.1 K/uL (0.1-1.3) 12/05/19 05:23 Absolute Eosinophils 0.0 K/uL (0-0.5) 12/05/19 05:23 Absolute Basophils 0.0 K/uL (0-0.5) 12/05/19 05:23 PT 14.3 SECONDS (9.5-12.5) H 12/04/19 09:55 INR 1.22 12/04/19 09:55 APTT 28.9 SECONDS (24.3-36.9) 12/04/19 09:55 Sodium 140 mmol/L (136-145) 12/05/19 05:25 Potassium 3.9 mmol/L (3.5-5.1) 12/05/19 05:25 Chloride 108 mmol/L (98-107) H 12/05/19 05:25 Carbon Dioxide 24 mmol/L (21-32) 12/05/19 05:25 BUN 16 mg/dL (7-18) 12/05/19 05:25 Creatinine 0.80 mg/dL (0.55-1.3) 12/05/19 05:25 Estimated GFR 69 mL/min (=/>90) L 12/05/19 05:25 Glucose 136 mg/dL (74-106) H 12/05/19 05:25 Lactic Acid 1.9 mmol/L (0.4-2.0) 12/04/19 09:55 Calcium 8.9 mg/dL (8.5-10.1) 12/05/19 05:25 Magnesium 2.1 mg/dL (1.8-2.4) 12/04/19 09:55 Total Bilirubin 0.5 mg/dL (0.2-1.0) 12/05/19 05:25 Direct Bilirubin 0.2 mg/dL (0-0.2) 12/04/19 09:55 AST 59 U/L (15-37) H 12/05/19 05:25 ALT 32 U/L (12-78) 12/05/19 05:25 Alkaline Phosphatase 75 U/L (45-117) 12/05/19 05:25 Creatine Kinase 398 U/L (26-192) H 12/04/19 09:55 CK-MB (CK-2) 2.9 ng/mL (0.3-3.6) 12/04/19 09:55 Rapid Troponin I < 0.02 ng/mL (0.0-0.045) 12/04/19 09:55 NT-Pro-B Natriuret Pep 435 pg/mL (<450) 12/04/19 09:55 Serum Total Protein 7.4 g/dL (6.4-8.2) 12/05/19 05:25 Albumin 3.1 g/dL (3.4-5.0) L 12/05/19 05:25 Globulin 4.3 g/dL (2.3-3.5) H D 12/05/19 05:25 Albumin/Globulin Ratio 0.7 (1.1-1.8) L 12/05/19 05:25 Amylase 45 U/L (25-115) 12/04/19 09:55 Lipase 195 U/L (73-393) 12/04/19 09:55 Procalcitonin 0.59 ng/mL (<0.50) H 12/04/19 09:55 Urine RBC Cancelled 12/04/19 09:40 Urine WBC Cancelled 12/04/19 09:40 Ur Squamous Epith Cells Cancelled 12/04/19 09:40 Ur Urothelial Cells Cancelled 12/04/19 09:40 Calcium Oxalate Crystal Cancelled 12/04/19 09:40 Uric Acid Crystals Cancelled 12/04/19 09:40 Triple Phos Crystals Cancelled 12/04/19 09:40 Other Crystals Cancelled 12/04/19 09:40 Amorphous Sediment Cancelled 12/04/19 09:40 Glitter Cells Cancelled 12/04/19 09:40 Urine Bacteria Cancelled 12/04/19 09:40 Hyaline Casts Cancelled 12/04/19 09:40 Fine Granular Casts Cancelled 12/04/19 09:40 Coarse Granular Casts Cancelled 12/04/19 09:40 Waxy Casts Cancelled 12/04/19 09:40 RBC Casts Cancelled 12/04/19 09:40 WBC Casts Cancelled 12/04/19 09:40 Urine Mucus Cancelled 12/04/19 09:40 Urine Other Cancelled 12/04/19 09:40 Urine Trichomonas Cancelled 12/04/19 09:40 Urine Yeast Cancelled 12/04/19 09:40 Ur Yeast w Hyphae Cancelled 12/04/19 09:40 Urine Yeast (Budding) Cancelled 12/04/19 09:40 Urine Sperm Cancelled 12/04/19 09:40 Urine Culture Reflexed Cancelled 12/04/19 09:40 Urine Total Volume Cancelled 12/04/19 09:40 Assessment & Plan - Problems (Diagnosis) (1) Right lower lobe pneumonia Current Visit: Yes Status: Acute Qualifiers: Pneumonia type: due to unspecified organism Qualified Code(s): J18.9 - Pneumonia, unspecified organism (2) Alzheimer's dementia Current Visit: Yes Status: Chronic (3) Chronic back pain Current Visit: Yes Status: Chronic Plan: Right lower lobe pneumonia Alzheimer's dementia Leukocytosis Chronic back pain Plan Monitor under telemetry IV antibiotics Mucinex Continue home medications and titrate as needed Pain control antitussives Will get a repeat x-ray GI/DVT prophylaxis
--- NOTE | 2019-12-05 10:38 | RAD REPORT ---
EXAM DESCRIPTION: RAD - Chest Single View - 12/05/2019 10:15 am CLINICAL HISTORY: PNA Chest pain. COMPARISON: Chest Single View dated 12/04/2019 FINDINGS: Portable technique limits examination quality. The lungs are grossly clear. The heart is normal in size. No displaced fractures.Cervical hardware pl ate is noted. IMPRESSION: No acute intrathoracic process suspected.
[2019-12-05 12:24] LABS: Urine Appearance CLEAR; Urine Bilirubin NEGATIVE (NEG); Urine Blood NEGATIVE (NEG); Urine Color YELLOW; Urine Glucose NEGATIVE (NEG); Urine Protein TRACE (NEG); Urine Specific Gravity 1.025 (1.005-1.030); Urine Urobilinogen 0.2 mg/dL (0.2-1.0)
[2019-12-05] MEDS: ACETAMINOPHEN 500 MG TAB PO PRN ×2 (12:31→16:56)
[2019-12-05 12:36] LABS: Urine Microscopic Reflex ORDER UMIC
[2019-12-05 12:46] LABS: Urine Bacteria <20 /HPF (<20); Urine Culture Reflex Order NOT NEEDED; Urine Mucus LIGHT /HPF (NONE SEEN); Urine RBC <5 /HPF (NONE SEEN)
[2019-12-06] MEDS: ALBUTEROL 2.5 MG/3 ML NEB SOL NEB SCH ×2 (02:05→08:03)
[2019-12-06] MEDS: IPRATROPIUM BROM 0.5MG/2.5ML NEB SCH ×2 (02:05→08:03)
[2019-12-06 05:59] LABS: Absolute Lymphocytes (CBC) 2.4 K/uL (0.7-4.9); Basophils % 0.4 % (0-1.3); Hematocrit 33.8 % (36.0-45.0); Lymphocytes % 24.1 % (15.3-44.8); MPV 7.4 fL (7.6-11.3); RBC Red Blood Cell Count 3.52 M/uL (3.86-4.86)
[2019-12-06 06:11] LABS: Potassium 3.6 mmol/L (3.5-5.1)
[2019-12-06] MEDS ORDERED: POTASSIUM CL SA 10 MEQ TAB PO ONE (06:24)
[2019-12-06 08:07] VITALS: BP 139/81; TEMP 97.9
[2019-12-06] MEDS: HYDROCODONE/CHLORPHEN 5 ML/OSYR PO PRN (08:21)
[2019-12-06] MEDS: ENOXAPARIN 40 MG/0.4 ML SQ SCH (08:22)
[2019-12-06] MEDS: CEFTRIAXONE/SWI 1gm 1 GM/10 ML SYR IV SCH (08:50)
[2019-12-06] MEDS: AZITHROMYCIN IV 500 MG in NA CHLORIDE 0.9% 250 ML IVPB SCH (08:50)
[2019-12-06 09:17] VITALS: O2SAT 97
--- NOTE | 2019-12-06 11:19 | P.DS ---
Admission Date: 12/04/19 Discharge Date: 12/06/19 Disposition: ROUTINE DISCHARGE Discharge Condition: FAIR Reason for Admission: Fever , cough Consultations: None Procedures: None - Problems (1) Right lower lobe pneumonia Current Visit: Yes Status: Acute Qualifiers: Pneumonia type: due to unspecified organism Qualified Code(s): J18.9 - Pneumonia, unspecified organism (2) Alzheimer's dementia Current Visit: Yes Status: Chronic (3) Sepsis Current Visit: Yes Status: Acute Brief History of Present Illness: 79-year-old woman with a history of Alzheimer dementia presented to the ED with a complaint of fever and cough of about 3 days duration. Patient noted to have leukocytosis. Her pro calcitonin level was also elevated. Her chest x-ray in the ED showed no acute disease. Patient was admitted for possible pneumonia with sepsis. Hospital Course: Patient was aggressively treated with IV Rocephin and Zithromax, bronchodilators and chest physiotherapy. She clinically improved with treatment. Leukocytosis resolved. Blood cultures yielded no growth. Patient clinical symptoms improved. She ambulated without shortness of breath and with good oxygen saturation. No fever since hospitalization. Patient is deemed clinically stable for discharge. She is discharge with Augmentin to continue treatment for pneumonia. Vital Signs/Physical Exam: Temp Pulse Resp BP Pulse Ox 97.9 F 88 20 139/81 98 12/06/19 08:00 12/06/19 08:00 12/06/19 08:00 12/06/19 08:00 12/06/19 08:00 General: Alert, In no apparent distress HEENT: Mucous membr. moist/pink, Sclerae nonicteric Neck: Supple, JVD not distended Respiratory: Clear to auscultation bilaterally, Normal air movement Cardiovascular: No edema, Regular rate/rhythm, Normal S1 S2 Capillary refill: <2 Seconds Gastrointestinal: Normal bowel sounds, Soft and benign, Non-distended, No tenderness Musculoskeletal: No swelling, No erythema Integumentary: No rashes Neurological: Normal speech, Normal strength at 5/5 x4 extr Laboratory Data at Discharge: WBC 9.9 K/uL (4.3-10.9) D 12/06/19 05:18 Hgb 11.7 g/dL (12.0-15.0) L 12/06/19 05:18 Hct 33.8 % (36.0-45.0) L 12/06/19 05:18 Plt Count 240 K/uL (152-406) 12/06/19 05:18 PT 14.3 SECONDS (9.5-12.5) H 12/04/19 09:55 INR 1.22 12/04/19 09:55 APTT 28.9 SECONDS (24.3-36.9) 12/04/19 09:55 Sodium 140 mmol/L (136-145) 12/06/19 05:18 Potassium 3.6 mmol/L (3.5-5.1) 12/06/19 05:18 BUN 13 mg/dL (7-18) 12/06/19 05:18 Creatinine 0.72 mg/dL (0.55-1.3) 12/06/19 05:18 Glucose 82 mg/dL (74-106) 12/06/19 05:18 Magnesium 2.1 mg/dL (1.8-2.4) 12/04/19 09:55 Total Bilirubin 0.5 mg/dL (0.2-1.0) 12/05/19 05:25 AST 59 U/L (15-37) H 12/05/19 05:25 ALT 32 U/L (12-78) 12/05/19 05:25 Alkaline Phosphatase 75 U/L (45-117) 12/05/19 05:25 Amylase 45 U/L (25-115) 12/04/19 09:55 Lipase 195 U/L (73-393) 12/04/19 09:55 Home Medications: Calcium Carbonate/Vitamin D3 [Calcium 500 + Vit D Caplet] 1 each PO DAILY Docusate [Colace Cap*] 100 mg PO BID PRN 12/04/19 Donepezil [Aricept*] 10 mg PO DAILY 12/04/19 Duloxetine HCl [Cymbalta] 30 mg PO DAILY 12/04/19 Letrozole [Femara*] 2.5 mg PO DAILY 12/04/19 Multivit-Min/FA/Lycopen/Lutein [Centrum Silver Tablet] 1 each PO DAILY 12/04/19 Pantoprazole [Protonix Tab*] 40 mg PO DAILY 12/04/19 Amox/Clavulanate [Augmentin 875-125 Tab] 1 each PO BID #14 tab 12/06/19 Hydrocodone/Chlorphen Polis [Tussionex Oral Susp*] 5 ml PO Q12H PRN #1 bottle New Medications: Amox/Clavulanate [Augmentin 875-125 Tab] 1 each PO BID #14 tab Hydrocodone/Chlorphen Polis [Tussionex Oral Susp*] 5 ml PO Q12H PRN #1 bottle PRN Reason: Cough Diet: AHA Activity: Fall precautions Time spent managing pt's care (in minutes): 38
== END 2019-12-06 12:20 | disposition home or self-care (01) | DRG 871 ==
LOC: ER 08:59 → ERHOLD 10:40 → OBSVTOIN 10:40 → 2ND 11:28
PROVIDERS: ADMIT Family Medicine; ATTEND Internal Medicine
DX: A41.9 Sepsis, unspecified organism (principal); J18.9 Pneumonia, unspecified organism; G30.9 Alzheimer's disease, unspecified; F02.80 Dementia in other diseases classified elsewhere, unspecified severity, without behavioral disturbance, psychotic disturbance, mood disturbance, and anxiety; G89.29 Other chronic pain; M54.9 Dorsalgia, unspecified
CPT/HCPCS: 36415; 71045; 80048; 80053; 80076; 81003; 81015; 82150; 82550; 82553; 83605; 83690; 83735; 83880; 84145; 84484; 85025; 85610; 85730; 87040; 87804; 93005; 94640; 94760; 96365; 96375; 99285; J0456; J0696; J1650; J2930; J7030

== ENCOUNTER 2021-06-01 21:13 | Emergency (ER) | payer OTHER ==
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
--- NOTE | 2021-06-01 21:43 | RAD REPORT ---
EXAM DESCRIPTION: CT - Head C Spine Cap Wo Con - 06/01/2021 9:32 pm CLINICAL HISTORY: Trauma, head and neck injury. Chest, abdomen and pelvis pain. found on ground, unwitnessed fall COMPARISON: <Comparisons> TECHNIQUE: CT head without contrast. CT cervical spine without contrast with coronal and sagittal reformatted images. CT chest, abdomen and pelvis without contrast with coronal and sagittal reformatted images of the spi ne. All CT scans are performed using dose optimization technique as appropriate and may include automated exposure control or mA/KV adjustment according to patient size. FINDINGS: CT HEAD WITHOUT CONTRAST: No intracranial hemorrhage, hydrocephalus or extra-axial fluid collection. No areas of brain edema o r midline shift. The right maxillary sinus mucosal thickening. The calvarium is intact. CT CERVICAL SPINE WITHOUT CONTRAST: No fracture or subluxation. The prevertebral soft tissues are normal in thickness.C5 through C7 ACDF . Multilevel cervical spondylosis with varying degrees of neural foraminal narrowing. At least mild c entral spinal stenosis is noted at C4-5. CT CHEST, ABDOMEN, PELVIS WITHOUT CONTRAST: NOTE: Lack of contrast is a significant limitation in the assessment of trauma related findings. Spec ifically, solid organ, vascular and bowel evaluation is significantly limited. The lungs are clear.No pneumothorax or pericardial/pleural fluid. No evidence of intra-abdominal visceral injury, free fluid or free air is seen within the above detai led limitations. Nonobstructive right nephrolithiasis. Hysterectomy. No concerning pelvic findings. No fractures. Spinal stimulator. Multilevel degenerate disc disease. There is a compression deformity at T11 which is likely chronic. There has been prior fusion in the lumbar spine. IMPRESSION: Negative for acute traumatic findings within the above detailed limitations.
--- NOTE | 2021-06-01 21:57 | RAD REPORT ---
EXAM DESCRIPTION: RAD - Humerus Left - 06/01/2021 9:48 pm CLINICAL HISTORY: PAIN COMPARISON: Forearm Left dated 06/01/2021 FINDINGS: Left posterior elbow dislocation. There may be an associated distal humerus fracture but t his is difficult to evaluate on these views. The remaining humerus is intact. No left shoulder disloc ation. IMPRESSION: Left elbow dislocation. There is likely underlying fracture but a dedicated elbow radiog raphs better evaluate. The remaining humerus is intact.
--- NOTE | 2021-06-01 21:58 | RAD REPORT ---
EXAM DESCRIPTION: RAD - Forearm Left - 06/01/2021 9:48 pm CLINICAL HISTORY: PAIN COMPARISON: No comparisons FINDINGS: Left elbow dislocation. There is some osseous fragments, possibly off of the coronoid but also possibly off of the distal humerus. No other forearm fracture is seen. Advanced degenerative linda nges are present the base of thumb. IMPRESSION: Left elbow dislocation. There is associated fractures but difficult to delineate on this view. CT could better evaluate.
[2021-06-01] MEDS ORDERED: FENTANYL CITR 100 MCG/2 ML ONE (22:29)
[2021-06-01] MEDS ORDERED: ONDANSETRON 4 MG/2 ML VIAL ONE (22:30)
[2021-06-01] MEDS ORDERED: propofoL 200 MG/20 ML VIAL IV ONE (22:30)
[2021-06-01] MEDS ORDERED: NA CHLORIDE 0.9% 1,000 ML ONE (22:30)
--- NOTE | 2021-06-01 23:35 | ER ---
Nurse's Notes [facility] Name: Leonor Galvin Age: 80 yrs Sex: Female : 1940 Arrival Date: 06/01/2021 Time: 21:16 Bed 4 Private MD: Diagnosis: Pathological dislocation of left elbow, not elsewhere classified-Initial Encounter;Nondisplaced fracture of head of left radius, initial encounter for closed fracture Presentation: 06/01 21:44 Chief complaint: Patient states: pt rolled out of bed striking LT elbow, pain and bs2 swelling to Right elbow. Coronavirus screen: At this time, the client does not indicate any symptoms associated with coronavirus-19. Ebola Screen: No symptoms or risks identified at this time. Initial Sepsis Screen: Does the patient meet any 2 criteria? No. Patient's initial sepsis screen is negative. Does the patient have a suspected source of infection? No. Patient's initial sepsis screen is negative. Risk Assessment: Do you want to hurt yourself or someone else? Patient reports no desire to harm self or others. Onset of symptoms was June 01, 2021. 21:44 Method Of Arrival: EMS: [facility] bs2 21:44 Acuity: DARON 3 bs2 Triage Assessment: 21:48 General: Appears uncomfortable, well groomed, well developed, well nourished, Behavior bs2 is uncooperative. Pain: Complains of pain in left antecubital area Pain currently is 10 out of 10 on a pain scale. Historical: - Allergies: 21:48 Sulfa (Sulfonamide Antibiotics); bs2 - Home Meds: 21:48 letrozole Oral [Active]; bs2 - PMHx: 21:48 Alzheimers; breast cancer; S1 fracture; bs2 - Immunization history:: Adult Immunizations up to date. - Social history:: Smoking status: unknown. - Family history:: not pertinent. - Hospitalizations: : No recent hospitalization is reported. - History obtained from: EMS. Screenin:51 Abuse screen: Denies threats or abuse. Denies injuries from another. Nutritional bs2 screening: No deficits noted. Tuberculosis screening: No symptoms or risk factors identified. Fall Risk Fall in past 12 months (25 points). Mental Status- Overestimates/Forgets Limitations (15 pts.). Assessment: 21:51 General: Appears uncomfortable, well groomed, emaciated, well nourished, Behavior is. bs2 06/02 00:27 Reassessment: pt resting quietly, resp unlabored, splint to left arm in place with bb sling, EMS called for transportation back to [facility]. 00:28 Reassessment: [facility] at bedside. bb Vital Signs: 06/01 21:44 BP 156 / 84; Pulse 60; Resp 19; Temp 98.0; Pulse Ox 100% ; Pain 10/10; bs2 06/02 00:28 BP 138 / 69; Pulse 102; Resp 18 S; Pulse Ox 100% on R/A; bb ED Course: 06/01 21:16 Patient arrived in ED. rn 21:16 Karlos Leyva MD is Attending Physician. rn 21:32 CT Traumagram (Head C Spine CAP wo con) In Process Unspecified. EDMS 21:44 Jody Melgar RN is Primary Nurse. bs2 21:48 XRAY Humerus LEFT In Process Unspecified. EDMS 21:48 XRAY Forearm LEFT In Process Unspecified. EDMS 21:48 Triage completed. bs2 21:48 Arm band placed on right wrist. bs2 21:51 Patient has correct armband on for positive identification. Bed in low position. Call bs2 light in reach. Side rails up X 1. compliance monitor on. Pulse ox on. NIBP on. Warm blanket given. 23:09 Elbow Left 2 View In Process Unspecified. EDMS 23:32 Himanshu Pandey MD is Referral Physician. rn 06/02 00:31 IV discontinued, intact, bleeding controlled, No redness/swelling at site. Pressure bb dressing applied. Administered Medications: 06/01 22:10 Drug: fentaNYL (PF) 50 mcg Route: IVP; Site: right forearm; bs2 06/02 00:29 Follow up: Response: No adverse reaction bb 06/01 22:47 Drug: Zofran (Ondansetron) 4 mg Route: IVP; Site: right forearm; bs2 06/02 00:29 Follow up: Response: No adverse reaction bb 06/01 22:47 Drug: Propofol 30 mg Route: IVP; Site: right forearm; bs2 06/02 00:30 Follow up: Response: No adverse reaction; RASS: Alert and Calm (0) bb 06/01 23:25 Drug: morphine 2 mg Route: IVP; Site: right forearm; bs2 06/02 00:30 Follow up: Response: No adverse reaction; RASS: Alert and Calm (0) 00:07 CANCELLED (dosage changee): Propofol 40 mg IVP once bs2 Outcome: 06/01 23:34 Discharge ordered by . rn 06/02 00:31 Discharged to half-way. Transfer form completed. bb Condition: stable Instructed on discharge instructions, follow up and referral plans. pt has dementia oriented x 1 to name 00:32 Patient left the ED. bb Signatures: Dispatcher [employer] EDPaula García RN RN bb Karlos Leyva MD MD rn Smith, Bridget, RN RN bs2 Corrections: (The following items were deleted from the chart) 00:10 06/01 21:48 Allergies: Morphine; bs2 bs2
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
[2021-06-01] MEDS ORDERED: MORPHINE 2 MG/ML SYR ONE (23:47)
[2021-06-02 00:38] VITALS: TEMP 98; O2SAT 100
[2021-06-02 00:39] VITALS: BP 138/69
--- NOTE | 2021-06-02 07:10 | RAD REPORT ---
EXAM DESCRIPTION: RAD - Elbow Left 2 View - 06/01/2021 11:09 pm CLINICAL HISTORY: post reduction COMPARISON: No comparisons FINDINGS: Re- located left elbow. There is likely a fracture involving the coronoid. Other fractures may be radiographically occult. An elbow effusion is present. IMPRESSION: Relocated left elbow. Probable coronoid fracture. Other radiographically occult fracture s may be present.
== END 2021-06-02 00:32 | disposition home or self-care (01) ==
LOC: ER 21:13
PROC: 0PSJXZZ Reposition Left Radius, External Approach (ICD-10-PCS; principal; 2021-06-02)
DX: S52.125A Nondisplaced fracture of head of left radius, initial encounter for closed fracture (principal); M24.322 Pathological dislocation of left elbow, not elsewhere classified; G30.9 Alzheimer's disease, unspecified; F02.80 Dementia in other diseases classified elsewhere, unspecified severity, without behavioral disturbance, psychotic disturbance, mood disturbance, and anxiety; Z88.2 Allergy status to sulfonamides; Z85.3 Personal history of malignant neoplasm of breast
CPT/HCPCS: 70450; 71250; 72125; 73070; 73090; 73060; 96375; 96374; 99285; 24655; J2704; J3010; J2270; J7030; J2405

== ENCOUNTER 2021-06-17 16:52 | Emergency (ER) | payer OTHER ==
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
--- NOTE | 2021-06-17 17:37 | RAD REPORT ---
EXAM DESCRIPTION: CT - CTHCSPWOC - 06/17/2021 5:23 pm CLINICAL HISTORY: Trauma, head and neck injury. fall COMPARISON: No comparisons TECHNIQUE: Axial 5 mm thick images of the head were obtained. Axial 2 mm thick images of the cervical spine were obtained with sagittal and coronal reconstruction images generated and reviewed. All CT scans are performed using dose optimization technique as appropriate and may include automated exposure control or mA/KV adjustment according to patient size. FINDINGS: CT HEAD WITHOUT CONTRAST: No acute hemorrhage, hydrocephalus or extra-axial collection is identified.No areas of brain edema or midline shift. Chronic small vessel ischemic changes. The paranasal sinuses and mastoids are clear.The calvarium is intact. CT CERVICAL SPINE WITHOUT CONTRAST: No fracture or subluxation.No prevertebral soft tissues swelling is identified. Status post C5 throug h C6 ACDF. Varying degrees of neural foraminal narrowing noted. There is probably moderate central sp inal stenosis at C4-5. IMPRESSION: No acute intracranial or cervical spine findings.
--- NOTE | 2021-06-17 18:27 | RAD REPORT ---
EXAM DESCRIPTION: RAD - Pelvis - 06/17/2021 6:18 pm CLINICAL HISTORY: PAIN COMPARISON: Pelvis Wo Cont dated 11/24/2019 FINDINGS: No acute fracture. No malalignment. Moderate bilateral hip degenerative changes. Sacrum no t well evaluated due to overlying bowel contents. The sacrum is not well evaluated and does have post hole digger medardo deformity. IMPRESSION: No acute osseous abnormality involving the pelvis. Note that the sacrum is not well eval uated.
--- NOTE | 2021-06-17 19:55 | RAD REPORT ---
EXAM DESCRIPTION: RAD - Hip Left 2 View - 06/17/2021 7:18 pm CLINICAL HISTORY: fall COMPARISON: Hip Left 2 View dated 11/24/2019 FINDINGS: No acute fracture. No malalignment. Moderate degenerative changes of the acetabulum. IMPRESSION: No acute osseous abnormality involving the left hip.
--- NOTE | 2021-06-17 20:19 | ER ---
Nurse's Notes [facility] Name: Leonor Galvin Age: 80 yrs Sex: Female : 1940 Arrival Date: 06/17/2021 Time: 16:53 Bed 3 Private MD: Diagnosis: Fall on same level from slipping, tripping and stumbling without subsequent striking against object Presentation: 06/17 16:53 Chief complaint: EMS states: Found down on floor beside bed. Pt oriented to person at baseline. Left arm wrapped in gauze, [place] reports recent arm injury. No other obvious injuries. VSS. Coronavirus screen: At this time, the client does not indicate any symptoms associated with coronavirus-19. Ebola Screen: No symptoms or risks identified at this time. Initial Sepsis Screen: Does the patient meet any 2 criteria? No. Patient's initial sepsis screen is negative. Does the patient have a suspected source of infection? No. Patient's initial sepsis screen is negative. Risk Assessment: Do you want to hurt yourself or someone else? Patient reports no desire to harm self or others. Onset of symptoms is unknown. 16:53 Method Of Arrival: EMS: [facility] 16:53 Acuity: DARON 3 hb Historical: - Allergies: 16:55 Sulfa (Sulfonamide Antibiotics); hb - Home Meds: 16:55 letrozole Oral [Active]; hb - PMHx: 16:55 Alzheimers; breast cancer; S1 fracture; hb - Immunization history:: Adult Immunizations unknown. - Social history:: Smoking status: unknown. Screenin:55 Abuse screen: unable to assess, no s/s abuse. Nutritional screening: No deficits noted. hb Tuberculosis screening: No symptoms or risk factors identified. Fall Risk Total Quiles Fall Scale indicates High Risk Score (45 or more points). Fall prevention measures have been instituted. Side Rails Up X 2 Frequent Obs/Assessments Occuring As available patient and family educated on Fall Prevention Program and Strategies. Assessment: 16:55 General: Appears in no apparent distress. Behavior is calm, cooperative. Pain: Unable hb to use pain scale. FLACC scale score is 0 out of 10. Neuro: Level of Consciousness is awake, alert, Oriented to person. Cardiovascular: Patient's skin is warm and dry. Respiratory: Respiratory effort is even, unlabored, Respiratory pattern is regular, symmetrical. GI: No signs and/or symptoms were reported involving the gastrointestinal system. : No signs and/or symptoms were reported regarding the genitourinary system. EENT: No signs and/or symptoms were reported regarding the EENT system. Derm: Skin is pink, warm \T\ dry. Musculoskeletal: No signs and/or symptoms reported regarding the musculoskeletal system. 17:50 Reassessment: Patient appears in no apparent distress at this time. Patient and/or hb family updated on plan of care and expected duration. Pain level reassessed. Patient is alert, oriented x 3, equal unlabored respirations, skin warm/dry/pink. 20:48 Reassessment: Report called to receiving nurse at [facility]. ea 20:53 Reassessment: Patient and/or family updated on plan of care and expected duration. Pain ea level reassessed. Pt alert and oriented to self. Respirations even and unlabored. Chest expansions even and symmetrical. [facility] EMS at facility back to [facility], report given to EMS. Pt left ED via stretcher per EMS. Vital Signs: 16:53 BP 122 / 70; Pulse 100; Resp 16; Temp 97.7; Pulse Ox 100% on R/A; Pain 0/10; hb 17:50 BP 121 / 74; Pulse 92; Resp 17; Pulse Ox 100% on R/A; hb 16:53 Kathrin (FACES) ED Course: 16:53 Patient arrived in ED. hb 16:55 Karlos Leyva MD is Attending Physician. rn 16:55 Triage completed. hb 16:55 Arm band placed on. hb 16:55 Patient has correct armband on for positive identification. Call light in reach. Side hb rails up X2. 16:56 Johsnon Lozada PA is PHCP. cp 17:23 CT Head C Spine In Process Unspecified. EDMS 17:50 Anusha Smith, RN is Primary Nurse. hb 18:18 XRAY Pelvis In Process Unspecified. EDMS 19:18 XRAY Hip LEFT 2 view In Process Unspecified. EDMS 20:55 No provider procedures requiring assistance completed. Patient did not have IV access ea during this emergency room visit. Administered Medications: No medications were administered Outcome: 20:18 Discharge ordered by . cp 20:55 Discharged to retirement. Report called to Receiving nurse at [facility] 20:55 Condition: stable 20:55 Discharge instructions given to EMS, Instructed on discharge instructions, follow up and referral plans. 20:55 Patient left the ED. ea Signatures: Dispatcher [employer] EDMS Karlos Leyva MD MD rn Page, Corey, PA PA cp Baxter, Heather, RN RN Lisbeth Hughes RN RN ea Corrections: (The following items were deleted from the chart) 16:55 16:53 Chief complaint: EMS states: Found down on floor beside bed. Pt oriented to person at baseline. Left arm wrapped in gauze, recent arm injury. No other obvious injuries. VSS.
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
[2021-06-17 21:01] VITALS: TEMP 97.7; O2SAT 100
[2021-06-17 21:02] VITALS: BP 121/74
== END 2021-06-17 20:55 | disposition home or self-care (01) ==
LOC: ER 16:52
DX: Z04.3 Encounter for examination and observation following other accident (principal); W01.0XXA Fall on same level from slipping, tripping and stumbling without subsequent striking against object, initial encounter; Y92.129 Unspecified place in nursing home as the place of occurrence of the external cause
CPT/HCPCS: 70450; 72125; 72170; 99283

== ENCOUNTER 2021-10-10 14:56 | Emergency (ER) | payer OTHER ==
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
--- NOTE | 2021-10-10 16:35 | RAD REPORT ---
EXAM DESCRIPTION: RAD - Pelvis - 10/10/2021 4:11 pm CLINICAL HISTORY: contusion to right buttocks s/p fall COMPARISON: Pelvis dated 06/17/2021 FINDINGS: No acute fracture. No malalignment. Moderate bilateral acetabular degenerative changes, le ft greater than right. IMPRESSION: No acute osseous abnormality involving the bony pelvis or hips.
--- NOTE | 2021-10-10 17:02 | RAD REPORT ---
EXAM DESCRIPTION: CT - CTHCSPWOC - 10/10/2021 4:46 pm CLINICAL HISTORY: Trauma, head and neck injury. Fall injury COMPARISON: Head C Spine Mpr Wo Con dated 06/17/2021 TECHNIQUE: Axial 5 mm thick images of the head were obtained. Axial 2 mm thick images of the cervical spine were obtained with sagittal and coronal reconstruction images generated and reviewed. All CT scans are performed using dose optimization technique as appropriate and may include automated exposure control or mA/KV adjustment according to patient size. FINDINGS: CT HEAD WITHOUT CONTRAST: No acute hemorrhage, hydrocephalus or extra-axial collection is identified.No areas of brain edema or midline shift. Chronic small vessel ischemic changes. Cerebral atrophy. The paranasal sinuses and mastoids are clear.The calvarium is intact. CT CERVICAL SPINE WITHOUT CONTRAST: No fracture or subluxation.No prevertebral soft tissues swelling is identified. Status post C5 throug h C7 ACDF. IMPRESSION: No acute intracranial or cervical spine findings.
--- NOTE | 2021-10-10 18:08 | ER ---
Nurse's Notes [facility] Name: Leonor Galvin Age: 80 yrs Sex: Female : 1940 Arrival Date: 10/10/2021 Time: 15:08 Bed 10 Private MD: Diagnosis: Contusion of right hip Presentation: 10/10 15:55 Chief complaint: EMS states: "pt had a fall. she is from [place] [address] home. no LOC. no hit to head. nursing staff reported softball sized welt on her hip.". Coronavirus screen: At this time, the client does not indicate any symptoms associated with coronavirus-19. Ebola Screen: No symptoms or risks identified at this time. Initial Sepsis Screen: Does the patient meet any 2 criteria? No. Patient's initial sepsis screen is negative. Does the patient have a suspected source of infection? No. Patient's initial sepsis screen is negative. Risk Assessment: Do you want to hurt yourself or someone else? Patient reports no desire to harm self or others. Onset of symptoms was October 10, 2021. 15:55 Method Of Arrival: EMS: [facility] jd3 15:55 Acuity: DARON 2 jd3 Historical: - Allergies: 15:58 Sulfa (Sulfonamide Antibiotics); jd3 - PMHx: 15:58 Alzheimers; breast cancer; S1 fracture; AMS; jd3 - PSHx: 15:58 right knee sx; jd3 - Immunization history:: Adult Immunizations unknown. - Social history:: Smoking status: unknown. Screenin:03 Abuse screen: Denies threats or abuse. Nutritional screening: No deficits noted. jd3 Tuberculosis screening: No symptoms or risk factors identified. Fall Risk Fall in past 12 months (25 points). Mental Status- Overestimates/Forgets Limitations (15 pts.). Total Quiles Fall Scale indicates Low Risk Score (25-44 pts). Fall prevention measures have been instituted. Side Rails Up X 2 Placed close to Nursing Station Frequent Obs/Assesments occuring. Assessment: 16:05 General: Appears in no apparent distress. comfortable, Behavior is calm, cooperative, jd3 appropriate for age. Pain: Denies pain. Neuro: Level of Consciousness is awake, alert, confused, Oriented to person, at baseline per senior care staff. Cardiovascular: Capillary refill < 3 seconds Patient's skin is warm and dry. Respiratory: Airway is patent Respiratory effort is even, unlabored, Respiratory pattern is regular, symmetrical. Derm: Skin is intact, Skin is dry, Skin is normal, Skin temperature is warm Bruising that is dark purple, green, on right hip. Musculoskeletal: Circulation, motion, and sensation intact. Range of motion: intact in all extremities. 16:10 Reassessment: x-ray at bedside, pt to CT. jd3 17:00 Reassessment: Patient appears in no apparent distress at this time. No changes from jd3 previously documented assessment. Patient and/or family updated on plan of care and expected duration. Pain level reassessed. 19:05 Reassessment: Patient appears in no apparent distress at this time. No changes from jd3 previously documented assessment. Patient and/or family updated on plan of care and expected duration. Pain level reassessed. Report given to Carlos at [facility]. Carlos reported that they were going to arrange transportation. 19:30 General: Appears in no apparent distress. Behavior is cooperative. Pain: Denies pain. mk Neuro: Level of Consciousness is awake, alert, Oriented to person. Cardiovascular: Capillary refill < 3 seconds Patient's skin is warm and dry. Respiratory: Airway is patent Trachea midline Respiratory effort is even, unlabored, Respiratory pattern is regular, symmetrical. GI: Abdomen is flat, non-distended, Bowel sounds present X 4 quads. Abd is soft and non tender. : No signs and/or symptoms were reported regarding the genitourinary system. EENT: Oral mucosa is moist. Derm: Skin is intact, Skin is dry, Skin is pink, warm \\T\\ dry. Skin temperature is warm. Musculoskeletal: Circulation, motion, and sensation intact. Range of motion: intact in all extremities. 20:33 Reassessment: Patient appears in no apparent distress at this time. No changes from mk previously documented assessment. waiting on transport previous RN had said was established. General: Appears in no apparent distress. 21:25 Reassessment: Patient appears in no apparent distress at this time. No changes from previously documented assessment. this RN had noticed EMS transport had not yet arrived, RN contacted EMS who sent transport promptly. Vital Signs: 16:01 Pulse 100; Resp 18 S; Temp 98.6(TE); Pulse Ox 100% on R/A; Weight 68.04 kg (R); Height jd3 5 ft. 4 in. (162.56 cm) (R); 19:20 BP 121 / 74; Pulse 96; Resp 18; Temp 98.9; Pulse Ox 96% on R/A; mk 20:31 BP 123 / 92; Pulse 98; Resp 18; Pulse Ox 97% on R/A; mk 21:25 BP 148 / 52; Pulse 91; Resp 18; Temp 98.5; Pulse Ox 98% on R/A; mk 16:01 Body Mass Index 25.75 (68.04 kg, 162.56 cm) jd3 Jose Coma Score: 19:30 Eye Response: spontaneous(4). Verbal Response: confused(4). Motor Response: obeys mk commands(6). Total: 14. 20:31 Eye Response: spontaneous(4). Verbal Response: confused(4). Motor Response: obeys mk commands(6). Total: 14. 21:25 Eye Response: spontaneous(4). Verbal Response: confused(4). Motor Response: obeys mk commands(6). Total: 14. Trauma Score (Adult): 21:27 Eye Response: spontaneous(1); Verbal Response: oriented(1); Motor Response: obeys mk commands(2); Systolic BP: > 89 mm Hg(4); Respiratory Rate: 10 to 29 per min(4); Jose Score: 15; Trauma Score: 12 ED Course: 15:08 Patient arrived in ED. ds1 15:18 Johann Kapoor NP is PHCP. pm1 15:18 Karlos Leyva MD is Attending Physician. pm1 15:51 Christiano Posey, LINETTE is Primary Nurse. jd3 15:58 Triage completed. jd3 16:02 Arm band placed on. jd3 16:04 Patient has correct armband on for positive identification. Bed in low position. Call jd3 light in reach. Side rails up X2. Pulse ox on. NIBP on. 16:05 No provider procedures requiring assistance completed. jd3 16:11 Pelvis XRAY In Process Unspecified. EDMS 16:46 CT Head C Spine In Process Unspecified. EDMS 21:27 Patient did not have IV access during this emergency room visit. jaziel Administered Medications: No medications were administered Outcome: 18:07 Discharge ordered by MD. pm1 19:04 Condition: stable jd3 21:27 Discharged to intermediate. jaziel 21:27 Condition: stable 21:27 Discharge instructions given to voucher examiner, EMS. 21:28 Patient left the ED. jaziel Signatures: Dispatcher [employer] [facility] Jeanette Karimi ds1 Johann Kapoor NP OPAL POLISHER pm1 Christiano Posey RN RN Samantha Valenzuela RN RN mk Corrections: (The following items were deleted from the chart) 16:00 15:58 PMHx: Pneumonia; jleonard j 17:05 16:05 Reassessment: x-ray at bedside, pt to [facility] j 17:05 17:04 Reassessment: Patient appears in no apparent distress at this time. No changes j from previously documented assessment. Patient and/or family updated on plan of care and expected duration. Pain level reassessed. jleonard 21:25 19:30 GCS: 15, ajziel sheriff 21:25 20:31 GCS: 15, mk 21:28 21:25 BP 148 / 52; Pulse 91bpm; Resp 18bpm; Pulse Ox 98% RA; jaziel sheriff
--- NOTE | 2021-10-10 18:08 | EDPHYS ---
Physician Documentation [facility] Name: Leonor Galvin Age: 80 yrs Sex: Female : 1940 Arrival Date: 10/10/2021 Time: 15:08 Bed 10 Private MD: ED Physician Karlos Leyva HPI: 10/10 15:58 This 80 yrs old Female presents to ER via EMS with complaints of Fall Injury. pm1 15:58 Details of fall: The patient fell from an upright position, while standing. Onset: The pm1 symptoms/episode began/occurred today. 15:58 Associated injuries: The patient sustained right hip, contusion. Severity of symptoms: pm1 in the emergency department the symptoms are unchanged. The patient has not experienced similar symptoms in the past. The patient has not recently seen a physician. Patient with fall in group home that was witnessed. Per group home report no head injury from fall. Historical: - Allergies: 15:58 Sulfa (Sulfonamide Antibiotics); jd3 - PMHx: 15:58 Alzheimers; breast cancer; S1 fracture; AMS; jd3 - PSHx: 15:58 right knee sx; jd3 - Immunization history:: Adult Immunizations unknown. - Social history:: Smoking status: unknown. ROS: 15:58 Constitutional: Negative for fever, chills, and weight loss, Neck: Negative for injury, pm1 pain, and swelling, Cardiovascular: Negative for chest pain, palpitations, and edema, Respiratory: Negative for shortness of breath, cough, wheezing, and pleuritic chest pain, MS/Extremity: Negative for injury and deformity, Neuro: Negative for headache, weakness, numbness, tingling, and seizure. 15:58 Skin: Positive for ecchymosis, of the right hip. 15:58 All other systems are negative. Exam: 15:58 Constitutional: This is a well developed, well nourished patient who is awake, alert, pm1 and in no acute distress. Head/Face: Normocephalic, atraumatic. 15:58 Skin: Warm, dry with normal turgor. Normal color with no rashes, no lesions, and no evidence of cellulitis. 15:58 Eyes: Exam is negative for acute changes, Extraocular movements: no acute changes, Conjunctiva: no acute changes, no injection. 15:58 ENT: Exam is negative for acute changes, Mouth: no acute changes, Lips: normal, moist, Oral mucosa: normal, pink and intact, moist. 15:58 Cardiovascular: Exam negative for acute changes, Rate: normal, Rhythm: regular, Pulses: no pulse deficits are appreciated, Heart sounds: normal, normal S1and S2. 15:58 Respiratory: Exam negative for acute changes, respiratory distress, shortness of breath, Breath sounds: are clear throughout. 15:58 Abdomen/GI: Exam negative for acute changes, Inspection: abdomen appears normal, Palpation: abdomen is soft and non-tender, in all quadrants. 15:58 Back: Exam negative for acute changes, vertebral tenderness, is not appreciated. 15:58 Musculoskeletal/extremity: Extremities: grossly normal except: noted in the medial aspect of right buttocks: ecchymosis, ROM: full active range of motion, in the left hip, right hip, right leg and left leg, full passive range of motion, in the right leg and left leg and right hip and left hip, the right foot and left foot Sensation intact. 15:58 Neuro: Exam negative for acute changes, Orientation: to person, patient's baseline per EMS/group home. Mentation: is normal, Motor: is normal, moves all fours. Vital Signs: 16:01 Pulse 100; Resp 18 S; Temp 98.6(TE); Pulse Ox 100% on R/A; Weight 68.04 kg (R); Height jd3 5 ft. 4 in. (162.56 cm) (R); 19:20 BP 121 / 74; Pulse 96; Resp 18; Temp 98.9; Pulse Ox 96% on R/A; mk 20:31 BP 123 / 92; Pulse 98; Resp 18; Pulse Ox 97% on R/A; mk 21:25 BP 148 / 52; Pulse 91; Resp 18; Temp 98.5; Pulse Ox 98% on R/A; mk 16:01 Body Mass Index 25.75 (68.04 kg, 162.56 cm) jd3 Mode Coma Score: 19:30 Eye Response: spontaneous(4). Verbal Response: confused(4). Motor Response: obeys mk commands(6). Total: 14. 20:31 Eye Response: spontaneous(4). Verbal Response: confused(4). Motor Response: obeys mk commands(6). Total: 14. 21:25 Eye Response: spontaneous(4). Verbal Response: confused(4). Motor Response: obeys mk commands(6). Total: 14. Trauma Score (Adult): 21:27 Eye Response: spontaneous(1); Verbal Response: oriented(1); Motor Response: obeys mk commands(2); Systolic BP: > 89 mm Hg(4); Respiratory Rate: 10 to 29 per min(4); Mode Score: 15; Trauma Score: 12 MDM: 15:45 Patient medically screened. pm1 15:58 Data reviewed: vital signs. Data interpreted: Pulse oximetry: on room air is 100 %. pm1 Interpretation: normal. 18:02 Counseling: I had a detailed discussion with the patient and/or guardian regarding: the pm1 historical points, exam findings, and any diagnostic results supporting the discharge/admit diagnosis, radiology results, the need for outpatient follow up, to return to the emergency department if symptoms worsen or persist or if there are any questions or concerns that arise at home. 10/10 15:54 Order name: CT Head C Spine; Complete Time: 17:08 pm1 10/10 15:58 Order name: Pelvis XRAY; Complete Time: 16:39 pm1 Administered Medications: No medications were administered Disposition: 10/11 07:21 Co-signature as Attending Physician, Karlos Leyva MD I agree with the assessment and rn plan of care. Attestation: The patient's history, exam findings, diagnostics, and a summary of any interventions or procedures was reviewed in detail with Johann Kapoor NP. Disposition Summary: 10/10/21 18:07 Discharge Ordered Location: Home pm1 Problem: new pm1 Symptoms: have improved pm1 Condition: Stable pm1 Diagnosis - Contusion of right hip pm1 Followup: pm1 - With: Emergency Department - When: As needed - Reason: Worsening of condition Followup: pm1 - With: Private Physician - When: 2 - 3 days - Reason: Recheck today's complaints, Continuance of care, Re-evaluation by your physician Discharge Instructions: - Discharge Summary Sheet pm1 - Contusion pm1 - Fall Prevention in Hospitals, Adult pm1 Forms: - Medication Reconciliation Form pm1 - Thank You Letter pm1 - Antibiotic Education pm1 - Prescription Opioid Use pm1 Signatures: Dispatcher [employer] EDMS Leyva, Karlos, MD MD rn Marinas, Johann, PROMOTIONS INTERN PROMOTIONS INTERN pm1 Christiano Posey RN RN jd3 Corrections: (The following items were deleted from the chart) 10/10 16:00 15:58 PMHx: Pneumonia; jd3 jd3
[2021-10-10 21:41] VITALS: BP 148/52; TEMP 98.5; O2SAT 98
== END 2021-10-10 21:28 | disposition home or self-care (01) ==
LOC: ER 14:56
DX: S70.01XA Contusion of right hip, initial encounter (principal); W19.XXXA Unspecified fall, initial encounter; Y92.129 Unspecified place in nursing home as the place of occurrence of the external cause; G30.9 Alzheimer's disease, unspecified; F02.80 Dementia in other diseases classified elsewhere, unspecified severity, without behavioral disturbance, psychotic disturbance, mood disturbance, and anxiety; Z85.3 Personal history of malignant neoplasm of breast; Z88.2 Allergy status to sulfonamides
CPT/HCPCS: 70450; 72125; 72170; 99284

== ENCOUNTER 2023-03-08 12:05 | Emergency (ER) | payer OTHER ==
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
[2023-03-08] MEDS ORDERED: NA CHLORIDE 0.9% 1,000 ML ONE (12:35)
[2023-03-08] MEDS ORDERED: ONDANSETRON 4 MG/2 ML VIAL ONE ×2 (12:35→17:23)
[2023-03-08 12:58] LABS: Absolute Lymphocytes (CBC) 2.7 K/uL (0.7-4.9); Hematocrit 32.1 % (36.0-45.0); Lymphocytes % 16.6 % (15.3-44.8); MPV 7.8 fL (7.6-11.3)
--- NOTE | 2023-03-08 13:16 | RAD REPORT ---
EXAM DESCRIPTION: CT - Abdomen Pelvis Wo Contrast - 03/08/2023 12:39 pm CLINICAL HISTORY: Abdominal pain COMPARISON: None TECHNIQUE: Computed axial tomography of the abdomen and pelvis was obtained. IV and oral contrast we re not requested. All CT scans are performed using dose optimization technique as appropriate and may include automated exposure control or mA/KV adjustment according to patient size. FINDINGS: The evaluation of solid organs, vessels and bowel is limited secondary to the lack of con trast administration. 6 millimeter calculus proximal left ureter. Moderate left hydronephrosis. Small nonobstructing right renal calculus. Liver, spleen and adrenals grossly normal. Atrophic pancreas No evidence of diverticulitis. Rectum is mildly distended with stool Spondylosis involves spine Borderline gallbladder distention IMPRESSION: A 6 millimeter calculus proximal left ureter with moderate left hydronephrosis Borderline gallbladder distention
[2023-03-08] MEDS ORDERED: KETOROLAC 30 MG/ML INJ ONE (13:49)
[2023-03-08 14:15] LABS: Albumin 3.6 g/dL (3.4-5.0); Bilirubin Total 0.4 mg/dL (0.2-1.0); Potassium 3.3 mEq/L (3.5-5.1); Protein, Total 7.9 g/dL (6.4-8.2); Troponin High Sensitivity 11.7 pg/mL (<58.9)
[2023-03-08 14:29] LABS: Specific Gravity 1.013 (1.005-1.030); Urine Bacteria 20-50 /HPF (<20); Urine Bilirubin NEGATIVE (Negative); Urine Blood 3+ (OVER) (Negative); Urine Clarity Turbid (Clear); Urine Color Light-Yellow (Yellow); Urine Glucose TRACE (Negative); Urine Mucus Slight /HPF (None Seen); Urine Protein NEGATIVE (Negative); Urine RBC 21-50 /HPF (None Seen); Urine Urobilinogen Normal (Normal); Urine pH 6.5 (5.0-7.0)
--- NOTE | 2023-03-08 17:00 | ER ---
Nurse's Notes [facility] [place] Name: Leonor Galvin Age: 82 yrs Sex: Female : 1940 Arrival Date: 03/08/2023 Time: 12:05 Bed 20 Private MD: Diagnosis: UTI/ Urinary tract infection, site not specified;Kidney Stone/ Calculus in urethra Presentation: 03/08 12:14 Chief complaint: EMS states: patient is from [facility]. patient vomited prior to db arrival. Given Zofran 4mg IVP. Coronavirus screen: Client denies travel out of the [place] in the last 14 days. Ebola Screen: Patient negative for fever greater than or equal to 101.5 degrees Fahrenheit, and additional compatible Ebola Virus Disease symptoms Patient denies exposure to infectious person. Patient denies travel to an Ebola-affected area in the 21 days before illness onset. No symptoms or risks identified at this time. Initial Sepsis Screen: Does the patient meet any 2 criteria? No. Patient's initial sepsis screen is negative. Does the patient have a suspected source of infection? No. Patient's initial sepsis screen is negative. Risk Assessment: Do you want to hurt yourself or someone else? Patient reports no desire to harm self or others. Onset of symptoms was March 08, 2023. Care prior to arrival: Medication(s) given: zofran 4 mg, IV initiated. 20 GA, in the right hand. 12:14 Method Of Arrival: EMS: [facility] db 12:14 Acuity: DARON 2 db Triage Assessment: 12:16 General: Appears in no apparent distress. comfortable, Behavior is calm, cooperative. db Pain: Unable to use pain scale. dementia. Historical: - Allergies: 12:17 Sulfa (Sulfonamide Antibiotics); db - PMHx: 12:17 Alzheimers; AMS; breast cancer; S1 fracture; db - PSHx: 12:17 right knee sx; db - Immunization history:: Adult Immunizations unknown. - Social history:: Smoking status: unknown. Screenin:08 [facility] ED Fall Risk Assessment (Adult) History of falling in the last 3 months, db including since admission No falls in past 3 months (0 pts) Confusion or Disorientation Yes (5 pts) Intoxicated or Sedated No (0 pts) Impaired Gait Yes (1 pt) Mobility Assist Device Used Yes (1 pt) Altered Elimination Yes (1 pt) Score/Fall Risk Level 3 or more points = High Risk Oriented to surroundings, Maintained a safe environment, Hourly rounding (assess needs \T\ fall precautionary measures) done, Utilized family, sitter, or virtual litigation claim representative as indicated. 14:08 Abuse screen: Denies threats or abuse. Denies injuries from another. Nutritional db screening: No deficits noted. Tuberculosis screening: No symptoms or risk factors identified. Assessment: 12:17 Reassessment: Patient appears in no apparent distress at this time. Patient and/or db family updated on plan of care and expected duration. Pain level reassessed. pt with nausea and vomiting. General: Appears in no apparent distress. comfortable, Behavior is calm, cooperative. 12:26 Reassessment: patient to CT. db 12:55 Reassessment: patient vomiting. Given Zofran 4m IVP. Patient denies pain at this time. db 13:00 Reassessment: Patient appears in no apparent distress at this time. Patient and/or db family updated on plan of care and expected duration. Pain level reassessed. Pain: Unable to use pain scale. confused. Neuro: Level of Consciousness is awake, alert, obeys commands, confused, Oriented to person. Respiratory: Airway is patent Respiratory effort is even, unlabored, Respiratory pattern is regular, symmetrical. 14:00 Reassessment: PATIENT placed on a puriwick. db 15:00 Reassessment: Patient appears in no apparent distress at this time. Patient and/or db family updated on plan of care and expected duration. Pain level reassessed. family is at bedside. 16:00 Reassessment: Patient appears in no apparent distress at this time. Patient and/or db family updated on plan of care and expected duration. Pain level reassessed. 17:25 Reassessment: Patient appears in no apparent distress at this time. Patient and/or db family updated on plan of care and expected duration. Pain level reassessed. Report given CLYDE Gill at [facility] Patient states symptoms have improved. General: Appears in no apparent distress. comfortable, Behavior is calm, cooperative. 17:26 Reassessment: Staff states will setup transport with [facility]. db 18:18 Reassessment: Patient appears in no apparent distress at this time. Patient and/or db family updated on plan of care and expected duration. Pain level reassessed. Patient is alert, oriented x 3, equal unlabored respirations, skin warm/dry/pink. Vital Signs: 12:14 BP 164 / 82; Pulse 58; Resp 18; Temp 98.1(A); Pulse Ox 100% on R/A; db 14:00 BP 142 / 65; Pulse 72; Resp 16; Pulse Ox 100% ; db 15:00 BP 147 / 107; Pulse 91; Resp 16; Pulse Ox 100% on R/A; db 16:30 BP 123 / 80; Pulse 94; Resp 16; Pulse Ox 97% on R/A; db 17:30 BP 113 / 78; Pulse 68; Resp 18; Pulse Ox 100% on R/A; db 18:00 BP 112 / 68; Pulse 82; Resp 18; Pulse Ox 100% ; db 12:14 pt refused oral temp db ED Course: 12:08 Patient arrived in ED. bs3 12:08 Carlitos You MD is Attending Physician. bs3 12:13 Yvonne Dennis, LINETTE is Primary Nurse. db 12:15 Triage completed. db 12:15 Arm band placed on Patient placed in an exam room. db 12:30 Maintain EMS IV. Dressing intact. Gauge \T\ site: 20 G right hand. db 12:41 CT Abd/Pelvis - Without Contrast In Process Unspecified. EDMS 14:00 Straight cath inserted, using sterile technique, 16 Fr. Returned obtained with 3 db nurses. Patient tolerated well. 15:08 Patient has correct armband on for positive identification. Placed in gown. Bed in low db position. Call light in reach. Side rails up X2. Client placed on continuous cardiac and pulse oximetry monitoring. NIBP monitoring applied. Warm blanket given. 18:16 No provider procedures requiring assistance completed. IV discontinued, intact, db bleeding controlled, No redness/swelling at site. Administered Medications: 12:50 Drug: Ondansetron IVP 4 mg Route: IVP; Site: right hand; db 18:18 Follow up: Response: No adverse reaction db 12:55 Drug: NS 0.9% IV 1000 ml Route: IV; Rate: 1 bolus; Site: right hand; db 17:00 Follow up: Response: No adverse reaction; IV Status: Completed infusion; IV Intake: db 1000ml 13:44 Drug: Ketorolac IVP 15 mg Route: IVP; Site: right hand; db 17:21 Follow up: Response: No adverse reaction db 17:03 Drug: Rocephin IV 1 grams Route: IV; Rate: 1 bolus; Site: right hand; db 17:21 Follow up: Response: No adverse reaction; IV Status: Completed infusion; IV Intake: 50mldb 17:20 Drug: morphine IVP or IV 4 mg Route: IVP; Infused Over: 4 mins; Site: right hand; db 18:17 Follow up: Response: No adverse reaction db 17:20 Drug: Ondansetron IVP 4 mg Route: IVP; Site: right hand; db 18:17 Follow up: Response: No adverse reaction db Medication: 18:16 VIS not applicable for this client. db Intake: 17:00 IV: 1000ml; Total: 1000ml. db 17:21 IV: 50ml; Total: 1050ml. db Outcome: 16:59 Discharge ordered by . bs3 18:15 Discharged to custodial. Report called to CLYDE Gill db 18:15 Condition: stable 18:15 Discharge instructions given to custodial, Instructed on discharge instructions, follow up and referral plans. Prescriptions given X 3. 18:18 Patient left the ED. db Signatures: Dispatcher [employer] EDCarlitos Shankar MD MD bs3 Yvonne Dennis RN RN db Corrections: (The following items were deleted from the chart) 15:08 13:00 Neuro: Level of Consciousness is awake, alert, obeys commands, Oriented to db person, place, time, situation, db
--- NOTE | 2023-03-08 17:00 | EDPHYS ---
Physician Documentation [facility] Name: Leonor Galvin Age: 82 yrs Sex: Female : 1940 Arrival Date: 03/08/2023 Time: 12:05 Bed 20 Private MD: ED Physician Carlitos You HPI: 03/08 12:17 This 82 yrs old Female presents to ER via EMS with complaints of Vomiting and bs3 abdominal pain. 12:17 82-year-old female history of Alzheimer's, untreated breast cancer presents with bs3 vomiting and abdominal pain unknown duration patient's history is limited secondary to her mental status she is brought in from [place] patient history is very limited as she only says that she does not have pain when asked if she had pain otherwise does not answer questions purposefully per EMS she had vomiting of her food no blood. Historical: - Allergies: 12:17 Sulfa (Sulfonamide Antibiotics); db - PMHx: 12:17 Alzheimers; AMS; breast cancer; S1 fracture; db - PSHx: 12:17 right knee sx; db - Immunization history:: Adult Immunizations unknown. - Social history:: Smoking status: unknown. ROS: 12:17 Constitutional: Negative for fever, chills bs3 12:17 All other systems are negative. Exam: 12:17 Constitutional: This is a well developed, well nourished patient who is awake, alert, bs3 and in no acute distress. Head/Face: Normocephalic, atraumatic. Eyes: Pupils equal round and reactive to light, extra-ocular motions intact. Lids and lashes normal. Neck: Trachea midline, no thyromegaly, no neck stiffness Chest/axilla: Normal chest wall appearance and motion. Nontender with no deformity. No lesions are appreciated. Cardiovascular: Regular rate and rhythm with a normal S1 and S2. symmetric pulses in upper extremities Respiratory: Lungs have equal breath sounds bilaterally, clear to auscultation, no respiratory distress Abdomen/GI: Soft, non-tender, no rebound or guarding Skin: Warm, dry with normal turgor. Normal color with no rashes, no lesions, and no evidence of cellulitis. MS/ Extremity: Pulses equal, no cyanosis. Neurovascular intact. Full, normal range of motion. Neuro: Alert and oriented x1 no focal deficits Psych: Awake, alert, with orientation to person, place and time. Behavior, mood, and affect are within normal limits. Vital Signs: 12:14 BP 164 / 82; Pulse 58; Resp 18; Temp 98.1(A); Pulse Ox 100% on R/A; db 14:00 BP 142 / 65; Pulse 72; Resp 16; Pulse Ox 100% ; db 15:00 BP 147 / 107; Pulse 91; Resp 16; Pulse Ox 100% on R/A; db 16:30 BP 123 / 80; Pulse 94; Resp 16; Pulse Ox 97% on R/A; db 17:30 BP 113 / 78; Pulse 68; Resp 18; Pulse Ox 100% on R/A; db 18:00 BP 112 / 68; Pulse 82; Resp 18; Pulse Ox 100% ; db 12:14 pt refused oral temp db MDM: 12:08 Patient medically screened. bs3 13:55 Data reviewed: vital signs, nurses notes. ED course: pt with abdominal pain and bs3 vomiting, given her age and medical hx, will do ct, labs and reassess. pt found to have proximal 6mm stone, will give toradol and reassess, per daughter, pt with hx of stones and would like to be transferred to [facility] if needed. . 16:56 ED course: I had a long conversation with the daughter at bedside who notes that the bs3 patient has been suffering she was previously on hospice but at some point she was taken off hospice she is DNR we discussed the patient's wishes regarding possible infected kidney stone and the daughter notes that the patient is suffering and would probably do a lot worse in an unfamiliar hospital we discussed that giving antibiotics may be prolonging her dying process and she agreed and recommended that she be discharged back to [place] she reached out to [place] and also reach out to her prior hospice communicator and will place the patient on hospice soon as possible we will treat pain, we discussed that we will treat the possible infected kidney stone until she is actually on hospice as this may be contributing to her pain. 03/08 12:09 Order name: CBC with Diff; Complete Time: 13:34 bs3 03/08 12:09 Order name: CMP; Complete Time: 16:09 bs3 03/08 12:09 Order name: Lipase; Complete Time: 16:09 bs3 03/08 12:09 Order name: Urinalysis w/ reflexes; Complete Time: 16:09 bs3 03/08 12:09 Order name: Troponin High Sensitivity; Complete Time: 16:09 bs3 03/08 14:40 Order name: Urine Culture EDTN 03/08 12:09 Order name: CT Abd/Pelvis - Without Contrast; Complete Time: 13:34 bs3 03/08 12:09 Order name: IV Saline Lock; Complete Time: 12:55 bs3 03/08 12:09 Order name: Labs collected and sent; Complete Time: 12:55 bs3 Administered Medications: 12:50 Drug: Ondansetron IVP 4 mg Route: IVP; Site: right hand; db 18:18 Follow up: Response: No adverse reaction db 12:55 Drug: NS 0.9% IV 1000 ml Route: IV; Rate: 1 bolus; Site: right hand; db 17:00 Follow up: Response: No adverse reaction; IV Status: Completed infusion; IV Intake: db 1000ml 13:44 Drug: Ketorolac IVP 15 mg Route: IVP; Site: right hand; db 17:21 Follow up: Response: No adverse reaction db 17:03 Drug: Rocephin IV 1 grams Route: IV; Rate: 1 bolus; Site: right hand; db 17:21 Follow up: Response: No adverse reaction; IV Status: Completed infusion; IV Intake: 50mldb 17:20 Drug: morphine IVP or IV 4 mg Route: IVP; Infused Over: 4 mins; Site: right hand; db 18:17 Follow up: Response: No adverse reaction db 17:20 Drug: Ondansetron IVP 4 mg Route: IVP; Site: right hand; db 18:17 Follow up: Response: No adverse reaction db Disposition Summary: 03/08/23 16:59 Discharge Ordered Location: Home bs3 Problem: new bs3 Symptoms: have improved bs3 Condition: Serious bs3 Diagnosis - UTI/ Urinary tract infection, site not specified bs3 - Kidney Stone/ Calculus in urethra bs3 Followup: bs3 - With: Private Physician - When: 1 - 2 days - Reason: Re-evaluation by your physician Discharge Instructions: - Discharge Summary Sheet bs3 - Urinary Tract Infection, Adult bs3 - Kidney Stones, [id number] bs3 Forms: - Medication Reconciliation Form bs3 - Thank You Letter bs3 - Antibiotic Education bs3 - Prescription Opioid Use bs3 Prescriptions: - acetaminophen-codeine 300-15 mg Oral tablet - take 1 tablet by ORAL route every 4 hours for 3 days as needed for pain; 12 bs3 tablet; Refills: 0, Product Selection Permitted - cefpodoxime 100 mg Oral Tablet - take 1 tablet by ORAL route every 12 hours for 10 days take with food; 20 bs3 tablet; Refills: 0, Product Selection Permitted - ondansetron 8 mg Oral tablet,disintegrating - take 1 tablet by ORAL route every 8 hours; 12 tablet; Refills: 0, Product bs3 Selection Permitted Signatures: Dispatcher [employer] Carlitos Baires MD MD bs3 Yvonne Dennis, RN RN db
[2023-03-08] MEDS ORDERED: CEFTRIAXONE 1000 MG/VIAL ONE (17:02)
[2023-03-08] MEDS ORDERED: NA CHLORIDE 0.9% 50 ML ONE (17:02)
[2023-03-08] MEDS ORDERED: MORPHINE 4 MG/ML SYR ONE (17:23)
[2023-03-08 18:23] VITALS: TEMP 98.1
[2023-03-08 18:31] VITALS: O2SAT 100
[2023-03-08 18:33] VITALS: BP 112/68
== END 2023-03-08 18:18 | disposition home or self-care (01) ==
LOC: ER 12:05
DX: N39.0 Urinary tract infection, site not specified (principal); N20.0 Calculus of kidney; N21.1 Calculus in urethra; G30.9 Alzheimer's disease, unspecified; F02.80 Dementia in other diseases classified elsewhere, unspecified severity, without behavioral disturbance, psychotic disturbance, mood disturbance, and anxiety; Z88.2 Allergy status to sulfonamides
CPT/HCPCS: 96365; 96361; 87088; 85025; 81001; 87086; 36415; 87077; 87186; 84484; 83690; 80053; 74176; 51702; 96375; 99284; J2405 ×2; J7030; J0696

== ENCOUNTER 2023-07-14 15:22 | Emergency (ER) | payer OTHER ==
--- OUTSIDE RECORDS SUMMARY | 2023-07-14 15:26 | XMS REPORT | Continuity of Care Document ---
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 00:00:00 Only Unassigned, DEE [id number] [facility] [place] [facility] [id number] [place] [phone] [facility] [address] [place] 2020-09-15 2020-09-15 Orders Doctor A[place]A [id number] 00:00:00 00:00:00 Only Unassigned, DEE [id number] [place] [facility] [id number] 009 2020-01-29 2020-01-29 Outpatient Nicole LARS SNIDER [facility] [id number] Univers 11:30:00 11:30:00 ity [facility] 2020-01-06 2020-01-06 Outpatient WOOD CHERRY [facility] [id number] [place] 05:41:00 05:41:00 [place] [id number] [facility] 2019-11-30 2019-11-30 Pre Visit Agata NDBRYAN [id number] Univers 00:00:00 00:00:00 Outreach Viry SAHU [id number] [id number] [phone] Med ical MIKE [address] [facility] 2019-11-30 2019-11-30 Pre Visit Agata [facility] [id number] 00:00:00 00:00:00 Outreach Viry Rivera [facility] [id number] FAMILY [id number] MEDICINE [id number] [place] 044 CLINIC 2019-11-10 2019-11-10 Orders Doctor AUG[place]A [id number] [facility] 00:00:00 00:00:00 Only Unassigned, DEE [id number] ity of [place] [facility] [id number] [place] [id number] [place] [address] Branch 2019-11-10 2019-11-10 Orders Doctor A[place]A [id number] 00:00:00 00:00:00 Only Unassigned, DEE [id number] [place] [facility] [id number] 009 Results This patient has no known results.
--- NOTE | 2023-07-14 15:45 | EDPHYS ---
Physician Documentation [facility] Name: Leonor Galvin Age: 82 yrs Sex: Female : 1940 Arrival Date: 07/14/2023 Time: 15:22 Bed 7 Private MD: ED Physician Karlos Leyva HPI: 07/14 15:46 This 82 yrs old Female presents to ER via Unassigned with complaints of fell out of bed.sb4 15:55 senior care states that patient rolled out of bed, about 6 inches from the ground. sb4 patient is not on blood thinners and did not lose consciousness. she has no complaints at this time although history is limited secondary to severe dementia . Historical: - Allergies: 15:47 Sulfa (Sulfonamide Antibiotics); nj1 - Home Meds: 17:03 buspirone 15 mg Oral tablet 1 tab 3 times per day [Active]; Calcium 600 + D(3) 600 nj1 mg-10 mcg (400 unit) oral tablet 1 tab daily [Active]; citalopram 30 mg capsule 1 cap daily [Active]; Depakene 5 ml Oral 250 mg/5 mL twice a day [Active]; docusate sodium 100 mg Oral tablet 1 tab 2 times per day [Active]; Femara 2.5 mg oral tablet 1 tab daily [Active]; fentanyl 12 mcg/hr Topical patch, transdermal 72 hours 1 patch every 72 hours [Active]; gabapentin 100 mg oral capsule 1 cap 2 times per day [Active]; Rosamond 10-325 mg Oral 1 tablet every 8 hours [Active]; lactulose 10 gram/15 mL (15 mL) Oral solution 15 mL daily [Active]; metformin 500 mg Oral tablet 1 tab 2 times per day [Active]; Namenda 10 mg oral tablet 1 tab 2 times per day [Active]; ondansetron HCl 8 mg Oral tablet 1 tab every 8 hours [Active]; pantoprazole 40 mg oral tablet, delayed release (enteric coated) 1 tab daily [Active]; acetaminophen 325 mg Oral tablet 2 tab every 4 hours [Active]; 17:11 Aricept 10 mg Oral tablet 1 tab every day at bedtime [Active]; aspirin 81 mg Oral nj1 tablet,chewable 1 tab daily [Active]; - PMHx: 15:47 Alzheimers; AMS; breast cancer; S1 fracture; Depressive disorder; Mononeuropathy; Hx of nj1 traumatic (healed) fracture, left arm; Diabetes mellitus; Gastric reflux; Muscle weakness; Psychotic disorder with delusions; - PSHx: 15:47 right knee sx; nj1 - Immunization history:: Adult Immunizations unknown. - Social history:: Smoking status: unknown. ROS: 15:55 Constitutional: Negative for fever, chills, and weight loss, sb4 15:55 All other systems are negative, Exam: 15:55 Head/Face: Normocephalic, atraumatic. Eyes: Extra-ocular motions intact. Periorbital sb4 areas with no swelling, redness, or edema. Cardiovascular: Regular rate and rhythm with a normal S1 and S2. Respiratory: Lungs have equal breath sounds bilaterally, clear to auscultation and percussion. No rales, rhonchi or wheezes noted. No increased work of breathing, no retractions or nasal flaring. Abdomen/GI: Soft, non-tender, no distension. Skin: Warm, dry with normal turgor. Normal color with no rashes, no lesions, and no evidence of cellulitis. MS/ Extremity: Pulses equal, no cyanosis. Neurovascular intact. Full, normal range of motion. Neuro: Awake and alert, GCS 15, oriented to person, place, time, and situation. Motor strength 5/5 in all extremities. Sensory grossly intact. 15:55 Constitutional: The patient appears alert, awake, unkempt, Vital Signs: 15:28 BP 151 / 74; Pulse 65; Resp 18; Temp 97.5(A); Pulse Ox 100% on R/A; Weight 50 kg (M); nj1 Height 5 ft. 5 in. (R); 16:00 BP 116 / 76; Pulse 54; Resp 18; Pulse Ox 100% on R/A; nj1 15:28 Body Mass Index 18.34 (50.00 kg, 165.1 cm) [facility] MDM: 15:35 Patient medically screened. sb4 15:55 Data reviewed: vital signs, nurses notes, EMS record, senior care records, and as a sb4 result, I will discharge patient. ED course: physical exam did not elicit any pain. no deformities or injuries noted. patient is at her baseline. safe to dc back to senior care. Administered Medications: No medications were administered Disposition: 07/15 08:44 Co-signature as Attending Physician, Karlos Leyva MD I reviewed the patient's care rn provided by the Advanced Practice Provider and agree with the diagnosis and treatment plan. Disposition Summary: 07/14/23 15:44 Discharge Ordered Notes: Location: Home sb4 Problem: new sb4 Symptoms: are unchanged sb4 Condition: Stable sb4 Diagnosis - Fall (on)(from) incline sb4 Followup: sb4 - With: Private Physician - When: As needed - Reason: Recheck today's complaints, Re-evaluation by your physician Discharge Instructions: - Discharge Summary Sheet sb4 - Fall Prevention in the Home, Adult, [id number] sb4 Forms: - Medication Reconciliation Form sb4 - Thank You Letter sb4 - Antibiotic Education sb4 - Prescription Opioid Use sb4 - Patient Portal Instructions sb4 - Leadership Thank You Letter sb4 Signatures: Karlos Leyva MD MD rn Brown, Sophia, PA-C PAMarlineC sb4 Madelaine Norwood RN RN nj1
--- NOTE | 2023-07-14 19:01 | ER ---
Nurse's Notes [facility] Name: Leonor Galvin Age: 82 yrs Sex: Female : 1940 Arrival Date: 07/14/2023 Time: 15:22 Bed 7 Private MD: Diagnosis: Fall (on)(from) incline Presentation: 07/14 15:28 Chief complaint: EMS states: Roll out of bed (low height bed), unwitnessed. [place] staff nj1 reported rib pain and head bump. Left arm pain from prior injury. 15:28 Coronavirus screen: At this time, the client does not indicate any symptoms associated nj1 with coronavirus-19. Ebola Screen: No symptoms or risks identified at this time. Initial Sepsis Screen: Does the patient meet any 2 criteria? Altered Mental Status. No. Patient's initial sepsis screen is negative. Does the patient have a suspected source of infection? No. Patient's initial sepsis screen is negative. Risk Assessment: Do you want to hurt yourself or someone else? Unable to obtain. Onset of symptoms was July 14, 2023. 15:28 Method Of Arrival: EMS: [facility] 15:28 Acuity: DARON 4 nj1 Historical: - Allergies: 15:47 Sulfa (Sulfonamide Antibiotics); nj1 - Home Meds: 17:03 buspirone 15 mg Oral tablet 1 tab 3 times per day [Active]; Calcium 600 + D(3) 600 nj1 mg-10 mcg (400 unit) oral tablet 1 tab daily [Active]; citalopram 30 mg capsule 1 cap daily [Active]; Depakene 5 ml Oral 250 mg/5 mL twice a day [Active]; docusate sodium 100 mg Oral tablet 1 tab 2 times per day [Active]; Femara 2.5 mg oral tablet 1 tab daily [Active]; fentanyl 12 mcg/hr Topical patch, transdermal 72 hours 1 patch every 72 hours [Active]; gabapentin 100 mg oral capsule 1 cap 2 times per day [Active]; [place] 10-325 mg Oral 1 tablet every 8 hours [Active]; lactulose 10 gram/15 mL (15 mL) Oral solution 15 mL daily [Active]; metformin 500 mg Oral tablet 1 tab 2 times per day [Active]; Namenda 10 mg oral tablet 1 tab 2 times per day [Active]; ondansetron HCl 8 mg Oral tablet 1 tab every 8 hours [Active]; pantoprazole 40 mg oral tablet, delayed release (enteric coated) 1 tab daily [Active]; acetaminophen 325 mg Oral tablet 2 tab every 4 hours [Active]; 17:11 Aricept 10 mg Oral tablet 1 tab every day at bedtime [Active]; aspirin 81 mg Oral nj1 tablet,chewable 1 tab daily [Active]; - PMHx: 15:47 Alzheimers; AMS; breast cancer; S1 fracture; Depressive disorder; Mononeuropathy; Hx of nj1 traumatic (healed) fracture, left arm; Diabetes mellitus; Gastric reflux; Muscle weakness; Psychotic disorder with delusions; - PSHx: 15:47 right knee sx; nj1 - Immunization history:: Adult Immunizations unknown. - Social history:: Smoking status: unknown. Screenin:00 [facility] ED Fall Risk Assessment (Adult) Score/Fall Risk Level 3 or more points = High nj1 Risk Oriented to surroundings, Maintained a safe environment, Hourly rounding (assess needs \\T\\ fall precautionary measures) done, Used ambulatory aids as needed (educated on \\T\\ assisted with), Offered frequent toileting (1:1 observation), Remained with patient while ambulating. Abuse screen: Denies threats or abuse. Denies injuries from another. Nutritional screening: No deficits noted. Tuberculosis screening: No symptoms or risk factors identified. Assessment: 15:53 General: Appears in no apparent distress. comfortable, Behavior is calm. Pain: nj1 Complains of pain in right knee and left knee Unable to use pain scale. Neuro: Level of Consciousness is awake, alert, Oriented to person. Cardiovascular: Patient's skin is warm and dry. Respiratory: Airway is patent Respiratory effort is. 16:16 Reassessment: Call placed to [facility] to advise patient has been discharge. nj1 Spoke with nurse Bridget who states "DON wanted a CT head to make sure there is not a bleed since she is on aspirin". 16:20 Reassessment: Call placed to [place] to request transport back to facility as patient has nj1 been discharge. ED provider, Won Naylor NP, instructed to go ahead with discharge, no change in POC. 17:30 Reassessment: Call place to [place] to inquire about an ETA for transport. They state "1 nj1 hour". 18:57 Reassessment: [facility] here to transport patient back to senior care. Report nj1 given to Jhonny HENSON. Vital Signs: 15:28 BP 151 / 74; Pulse 65; Resp 18; Temp 97.5(A); Pulse Ox 100% on R/A; Weight 50 kg (M); nj1 Height 5 ft. 5 in. (R); 16:00 BP 116 / 76; Pulse 54; Resp 18; Pulse Ox 100% on R/A; nj1 15:28 Body Mass Index 18.34 (50.00 kg, 165.1 cm) nj1 ED Course: 15:34 Patient arrived in ED. ds4 15:34 Madelaine Norwood, RN is Primary Nurse. nj1 15:35 Brenda Naylor [facility]C [facility] sb4 15:35 Karlos Leyva MD is Attending Physician. sb4 15:47 Triage completed. nj1 15:52 Arm band placed on. nj1 16:01 Provided Education on: Deferred due to cognitive status. nj1 16:01 Patient has correct armband on for positive identification. Bed in low position. Call nj1 light in reach. Side rails up X 1. 16:18 Notified Nurse Practitioner and/or Physician Incident Response Manager of [place] concerns. Med list nj1 reviewed, no anticoagulants listed on med list. 16:20 No provider procedures requiring assistance completed. nj1 16:20 Patient did not have IV access during this emergency room visit. nj1 Administered Medications: No medications were administered Medication: 16:01 VIS not applicable for this client. nj1 Outcome: 15:44 Discharge ordered by . sb4 16:16 Discharged to senior care. Report called to Nurse Gill nj1 16:16 Condition: stable nj1 16:16 Discharge instructions given to Nurse Gill over the phone Instructed on discharge instructions, follow up and referral plans. Demonstrated understanding of See nurses note. 19:00 Patient left the ED. nj1 Signatures: Jaiden Carter ds4 Brenda Naylor PA-C PA-C sb4 Madelaine Norwood, RN RN nj1 Corrections: (The following items were deleted from the chart) 17:13 16:18 Notified Nurse Practitioner and/or Physician Incident Response Manager of [place] concerns. Med list nj1 reviewed, no blood thinners listed on med list. nj1
[2023-07-14 20:12] VITALS: TEMP 97.5; O2SAT 100
[2023-07-14 20:13] VITALS: BP 116/76
== END 2023-07-14 19:00 | disposition home or self-care (01) ==
LOC: ER 15:22
DX: Z04.3 Encounter for examination and observation following other accident (principal); W06.XXXA Fall from bed, initial encounter
CPT/HCPCS: 99283

== ENCOUNTER 2024-04-07 07:17 | Inpatient (IN) | payer OTHER ==
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
[2024-04-07 08:12] LABS: Absolute Basophils 0.1 K/uL (0-0.5); Absolute Eosinophils 0.2 K/uL (0-0.5); Absolute Lymphocytes (CBC) 2.9 K/uL (0.7-4.9); Absolute Monocytes 0.7 K/uL (0.1-1.3); Absolute Neutrophil 4.6 K/uL (1.8-8.0); Basophils % 1.3 % (0-1.3); Eosinophils % 2.9 % (0-4.4); Hematocrit 32.4 % (36.0-45.0); Hemoglobin 10.8 g/dL (12.0-15.0); Lymphocytes % 33.9 % (15.3-44.8); MCH 32.3 pg (27.0-35.0); MCHC 33.2 g/dL (32.0-36.0); MCV 97.3 fL (80-100); Monocytes % 8.7 % (3.3-12.3); Neutrophils % 53.2 % (41.7-73.7); Nucleated Red Blood Cells % 0.2 % (0-0); Platelets 522 thou/uL (152-406); RBC Red Blood Cell Count 3.33 M/uL (3.86-4.86); Red Cell Distribution Width 14.6 % (12.1-15.2)
[2024-04-07 08:19] LABS: Sqamous Epithelial <5 /HPF (None Seen); Urine Bacteria >50 /HPF (<20); Urine Bilirubin NEGATIVE (Negative); Urine Blood Trace (Negative); Urine Clarity Extremely Turbid (Clear); Urine Color Yellow (Yellow); Urine Culture Reflex Order REFLEXED; Urine Glucose NEGATIVE (Negative); Urine Ketones NEGATIVE (Negative); Urine Microscopic Reflex YN ORDER UMIC; Urine Mucus 1+ /HPF (None Seen); Urine Nitrite NEGATIVE (Negative); Urine Protein 1+ (Negative); Urine Urobilinogen 1+ (Normal); Urine WBC >50 /HPF (<5); Urine WBC Clump Occasional /HPF (None Seen); Urine pH 6.5 (5.0-7.0)
[2024-04-07] MEDS ORDERED: LORazepam 2 MG/ML VIAL ONE ×3 (10:14→10:22)
--- NOTE | 2024-04-07 11:07 | RAD REPORT ---
EXAM DESCRIPTION: RAD - Chest Single View - 04/07/2024 10:58 am CLINICAL HISTORY: post central line COMPARISON: Chest Single View dated 12/05/2019; Chest Single View dated 12/04/2019 FINDINGS: Lines: Left IJ approach central line with tip overlying the superior cavoatrial junction. Lungs: Low lung volumes. No focal consolidation. Pleural: No significant pleural effusions or pneumothorax. Cardiac: The heart size is within normal limits. Mediastinum: Within normal limits. Bones: No acute fractures. Spinal stimulator. ACDF in the cervical spine . Other: None IMPRESSION: Interval placement of a left IJ approach central line with tip overlying the superior ca voatrial junction. No pneumothorax. Low lung volumes. No definite acute process.
[2024-04-07 11:21] LABS: Albumin 2.5 g/dL (3.4-5.0); Albumin/Globulin Ratio 0.5 (1.1-1.8); Anion Gap 9.4 mEq/L (5.0-15.0); Bilirubin Total 0.6 mg/dL (0.2-1.0); Globulin 5.2 g/dL (2.3-3.5); Potassium 3.4 mEq/L (3.5-5.1); Protein, Total 7.7 g/dL (6.4-8.2)
[2024-04-07] MEDS ORDERED: CEFTRIAXONE 1000 MG/VIAL ONE (11:47)
[2024-04-07] MEDS ORDERED: NA CHLORIDE 0.9% 1,000 ML ONE ×2 (11:47→14:51)
--- NOTE | 2024-04-07 11:51 | EDPHYS ---
Physician Documentation [facility] Name: Leonor Galvin Age: 83 yrs Sex: Female : 1940 Arrival Date: 04/07/2024 Time: 07:17 Bed 18 Private MD: ED Physician Noman Bar HPI: 04/07 07:31 This 83 yrs old Female presents to ER via EMS with complaints of Urinary Problem. 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 EMS states that she is fighting any further IV hydration or urinary catheter to assess hydration status. Patient has full on dementia and history, physical and ROS are therefore limited due to this. No further history per EMS. Old records reviewed.. Historical: - Allergies: 07:23 Sulfa (Sulfonamide Antibiotics); kc6 - PMHx: 07:23 Alzheimers; AMS; breast cancer; depressive disorder; diabetes mellitus; Gastric Reflux; kc6 Hx of traumatic (healed) fracture; Mononeuropathy; MUSCLE WEAKNESS; psychotic disorder with delusions; S1 fracture; - PSHx: 07:23 right knee sx; kc6 - Immunization history:: Adult Immunizations up to date. - Infectious Disease History:: Denies. - Social history:: Smoking status: unknown. ROS: 07:33 Unable to obtain ROS due to baseline dementia, sp3 Exam: 07:33 Constitutional: This is a well developed, well nourished patient who is awake, alert, sp3 and in no acute distress. Head/Face: Normocephalic, atraumatic. Eyes: Pupils equal round and reactive to light, extra-ocular motions intact. Lids and lashes normal. Conjunctiva and sclera are non-icteric and not injected. Cornea within normal limits. Periorbital areas with no swelling, redness, or edema. Cardiovascular: Regular rate and rhythm with a normal S1 and S2. No gallops, murmurs, or rubs. Normal PMI, no JVD. No pulse deficits. Respiratory: Lungs have equal breath sounds bilaterally, clear to auscultation and percussion. No rales, rhonchi or wheezes noted. No increased work of breathing, no retractions or nasal flaring. Abdomen/GI: Soft, non-tender, with normal bowel sounds. No distension or tympany. No guarding or rebound. No evidence of tenderness throughout. 07:33 Abdomen/GI: Mild suprapubic grimace to palpation., Vital Signs: 07:22 BP 109 / 55; Pulse 76; Resp 16; Temp 97.8; Pulse Ox 98% on R/A; aw1 07:23 Weight 62.14 kg; aw1 08:34 BP 106 / 50; Pulse 75; Resp 18 S; Pulse Ox 99% on R/A; kc6 10:52 BP 127 / 83; Pulse 80; Resp 18 S; Pulse Ox 98% on 3 lpm NC; kc6 11:27 BP 145 / 72; Pulse 111; Resp 18 S; Pulse Ox 96% on 2 lpm NC; kc6 14:41 BP 101 / 77; Pulse 110; Resp 18 S; Pulse Ox 100% on 2 lpm NC; kc6 Procedures: 11:49 Central Line: the site was prepped with Betadine, in sterile fashion, a triple lumen sp3 catheter was inserted, in the left internal jugular vein, in 1 attempts. placement was verified, by CXR, by blood return, the site was dressed with using sterile technique, the patient tolerated the procedure, well. MDM: 07:24 Patient medically screened. sp3 07:34 Data reviewed: vital signs, nurses notes, old medical records, lab test result(s). ED sp3 course: 83-year-old female with decreased urine output who presents via EMS. Differential diagnosis includes bladder outflow obstruction versus dehydration. Will place Gutierres catheter to assess urine output and obtain general laboratory values to assess creatinine and other electrolytes. Further corrective treatment as indicated and disposition pending workup and patient course.. 11:49 ED course: Patient with UTI and dehydration another full evaluation is complete. IV sp3 fluids and antibiotics started and patient will be admitted to the hospital. Central line in place. Further per inpatient team.. 04/07 07:26 Order name: CBC with Diff; Complete Time: 11:09 sp3 04/07 07:26 Order name: CMP; Complete Time: 11:40 sp3 04/07 07:26 Order name: Lipase; Complete Time: 11:40 sp3 04/07 07:26 Order name: Urinalysis w/ reflexes; Complete Time: 11:09 sp3 04/07 07:26 Order name: Lactate w/ 2H reflex if indic.; Complete Time: 11:09 sp3 04/07 08:22 Order name: Urine Culture EDMS 04/07 13:12 Order name: Thyroid Stimulating Hormone EDMS 04/07 13:12 Order name: Urinalysis w/ reflexes EDMS 04/07 13:12 Order name: CBC with Automated Diff EDMS 04/07 13:12 Order name: CBC with Automated Diff EDMS 04/07 13:12 Order name: CBC with Automated Diff EDMS 04/07 13:12 Order name: CBC with Automated Diff EDMS 04/07 13:12 Order name: Comprehensive Metabolic Panel EDMS 04/07 13:12 Order name: Comprehensive Metabolic Panel EDMS 04/07 13:12 Order name: Comprehensive Metabolic Panel EDMS 04/07 13:12 Order name: Comprehensive Metabolic Panel EDMS 04/07 13:12 Order name: Magnesium EDMS 04/07 13:12 Order name: Magnesium EDMS 04/07 13:12 Order name: Magnesium EDMS 04/07 13:12 Order name: Magnesium EDMS 04/07 13:12 Order name: Phosphorus EDMS 04/07 13:12 Order name: Phosphorus EDMS 04/07 13:12 Order name: Phosphorus EDMS 04/07 13:12 Order name: Phosphorus EDMS 04/07 10:41 Order name: CXR XRAY; Complete Time: 11:09 sp3 04/07 07:26 Order name: IV Saline Lock; Complete Time: 10:53 sp3 04/07 07:26 Order name: Labs collected and sent; Complete Time: 07:49 sp3 04/07 07:26 Order name: NPO; Complete Time: 07:29 sp3 04/07 07:52 Order name: Labs - recollect needed: recollect green top please-hemolyzed; Complete em1 Time: 10:51 Administered Medications: 10:20 Drug: LORazepam IM 2 mg IM once Route: IM; Site: right deltoid; nj1 11:00 Follow up: Response: No adverse reaction; Anxiety decreased; RASS: Drowsy (-1) kc6 11:56 Drug: Rocephin - Rocephin (cefTRIAXone) IVPB 1 grams IVPB once over 30 mins; (mix in 50 kc6 mL NS) Route: IVPB; Infused Over: 30 mins; Site: left jugular; 13:35 Follow up: Response: No adverse reaction; IV Status: Completed infusion; IV Intake: [id number] 11:56 Drug: NS 0.9% IV 1000 ml IV at 1 bolus Per protocol; 1000 mL bolus Route: IV; Rate: 1 kc6 bolus; Site: left jugular; 13:36 Follow up: Response: No adverse reaction; IV Status: Completed infusion; IV Intake: kc6 1000ml Disposition Summary: 04/07/24 11:50 Hospitalization Ordered Notes: Hospitalization Status: Inpatient Admission sp3 Provider: Berhane Ríos sp3 Location: Telemetry/MedSurg (Inpatient) sp3 Condition: Stable sp3 Problem: an acute exacerbation sp3 Symptoms: have worsened sp3 Bed/Room Type: Standard sp3 Room Assignment: 222(04/07/24 16:26) 6 Diagnosis - Dehydration, UTI sp3 Forms: - Medication Reconciliation Form sp3 - SBAR form sp3 - Leadership Thank You Letter sp3 Signatures: Dispatcher [employer] Kilo Barrera em1 Noman Bar MD MD sp3 Margareth Díaz RN RN kc6 Veronique Felipe bc6 Madelaine Norwood RN RN nj1 Corrections: (The following items were deleted from the chart) 10:51 07:26 Gutierres ordered. sp3 kc6 16:26 11:50 sp3 6
--- NOTE | 2024-04-07 11:51 | ER ---
Nurse's Notes [facility] Name: Leonor Galvin Age: 83 yrs Sex: Female : 1940 Arrival Date: 04/07/2024 Time: 07:17 Bed 18 Private MD: Diagnosis: Dehydration, UTI Presentation: 04/07 07:22 Chief complaint: EMS states: they were toned out to [place] for decreased urinary kc6 output x2 days. states [place] tried IV hydration but the pt keeps pulling them out. Coronavirus screen: At this time, the client does not indicate any symptoms associated with coronavirus-19. Ebola Screen: No symptoms or risks identified at this time. Initial Sepsis Screen: Does the patient meet any 2 criteria? Altered Mental Status. Does the patient have a suspected source of infection? No. Patient's initial sepsis screen is negative. Risk Assessment: Do you want to hurt yourself or someone else? Patient reports no desire to harm self or others. Onset of symptoms was April 05, 2024. 07:22 Method Of Arrival: EMS: [facility] kc6 07:22 Acuity: DARON 3 kc6 Triage Assessment: 07:23 General: Appears in no apparent distress. comfortable, well groomed, well developed, kc6 Behavior is calm, cooperative, appropriate for age. Pain: Unable to use pain scale. Patient is disoriented. EENT: No signs and/or symptoms were reported regarding the EENT system. Neuro: Level of Consciousness is awake, alert, confused, Oriented to person, Appropriate for age. Cardiovascular: Capillary refill < 3 seconds. Respiratory: Airway is patent Trachea midline Respiratory effort is even, unlabored, Respiratory pattern is regular, symmetrical. GI: No signs and/or symptoms were reported involving the gastrointestinal system. : Parent/caregiver report the patient having decreased urinary output. Derm: No signs and/or symptoms reported regarding the dermatologic system. Skin is intact, is healthy with good turgor, Skin is pink, warm \T\ dry. Musculoskeletal: No signs and/or symptoms reported regarding the musculoskeletal system. Circulation, motion, and sensation intact. Capillary refill < 3 seconds, Range of motion: intact in all extremities. Historical: - Allergies: 07:23 Sulfa (Sulfonamide Antibiotics); kc6 - PMHx: 07:23 Alzheimers; AMS; breast cancer; depressive disorder; diabetes mellitus; Gastric Reflux; kc6 Hx of traumatic (healed) fracture; Mononeuropathy; MUSCLE WEAKNESS; psychotic disorder with delusions; S1 fracture; - PSHx: 07:23 right knee sx; kc6 - Immunization history:: Adult Immunizations up to date. - Infectious Disease History:: Denies. - Social history:: Smoking status: unknown. Screenin:25 [facility] ED Fall Risk Assessment (Adult) History of falling in the last 3 months, kc6 including since admission No falls in past 3 months (0 pts) Confusion or Disorientation Yes (5 pts) Intoxicated or Sedated No (0 pts) Impaired Gait Yes (1 pt) Mobility Assist Device Used Yes (1 pt) Altered Elimination Yes (1 pt) Score/Fall Risk Level 3 or more points = High Risk. Abuse screen: Denies threats or abuse. Denies injuries from another. Nutritional screening: No deficits noted. Tuberculosis screening: No symptoms or risk factors identified. Assessment: 07:24 Reassessment: please see triage. [facility] 07:50 Reassessment: pt appears to be voiding on her own just prior to white cath insertion. kc6 per Dr. Bar, hold the catheter and send for UA. 08:23 Reassessment: attempted to call inside lab for assistance with recollect as pt is a kc6 hard stick and charge is unavailable. no answer at this time. 08:24 Reassessment: Patient appears in no apparent distress at this time. No changes from kc6 previously documented assessment. Patient and/or family updated on plan of care and expected duration. Pain level reassessed. 08:33 Reassessment: spoke with Shivani from inside lab. states she is on her way to assist jason with recollect. 08:56 Reassessment: phlebotomy at bedside with 3 unsuccessful attempts. second training program assistant jason on her way. 09:24 Reassessment: Patient appears in no apparent distress at this time. No changes from kc6 previously documented assessment. Patient and/or family updated on plan of care and expected duration. Pain level reassessed. 09:35 Reassessment: LINETTE Burkett at bedside attempting an US IV. no success at this time. Dr. jason Bar notified. 09:49 Reassessment: Dr. Bar at bedside attempted an EJ. no success at this time. verbal kc6 orders received to set up for central line. Reassessment: attempted to call Geni (daughter) at [phone]. no answer at this time, left voicemail. 10:24 Reassessment: Patient appears in no apparent distress at this time. No changes from kc6 previously documented assessment. Patient and/or family updated on plan of care and expected duration. Pain level reassessed. 11:24 Reassessment: Patient appears in no apparent distress at this time. No changes from kc6 previously documented assessment. Patient and/or family updated on plan of care and expected duration. Pain level reassessed. 12:24 Reassessment: Patient appears in no apparent distress at this time. No changes from kc6 previously documented assessment. Patient and/or family updated on plan of care and expected duration. Pain level reassessed. 13:24 Reassessment: Patient appears in no apparent distress at this time. No changes from kc6 previously documented assessment. Patient and/or family updated on plan of care and expected duration. Pain level reassessed. 14:24 Reassessment: Patient appears in no apparent distress at this time. No changes from kc6 previously documented assessment. Patient and/or family updated on plan of care and expected duration. Pain level reassessed. Vital Signs: 07:22 BP 109 / 55; Pulse 76; Resp 16; Temp 97.8; Pulse Ox 98% on R/A; aw1 07:23 Weight 62.14 kg; aw1 08:34 BP 106 / 50; Pulse 75; Resp 18 S; Pulse Ox 99% on R/A; kc6 10:52 BP 127 / 83; Pulse 80; Resp 18 S; Pulse Ox 98% on 3 lpm NC; kc6 11:27 BP 145 / 72; Pulse 111; Resp 18 S; Pulse Ox 96% on 2 lpm NC; kc6 14:41 BP 101 / 77; Pulse 110; Resp 18 S; Pulse Ox 100% on 2 lpm NC; kc6 ED Course: 07:21 Patient arrived in ED. em1 07:22 Margareth Díaz, RN is Primary Nurse. kc6 07:23 Triage completed. kc6 07:23 Arm band placed on. kc6 07:24 Noman Bar MD is Attending Physician. sp3 07:25 Patient has correct armband on for positive identification. Bed in low position. Call kc light in reach. Side rails up X2. Pulse ox on. NIBP on. Lights dimmed. Warm blanket given. Pillow given. 07:49 Missed attempt(s): 22 gauge in right wrist. Missed attempt(s): 24 gauge in left hand. kc6 07:49 Initial lab(s) drawn, by ED staff, sent to lab. kc6 07:50 Cleaned of incontinence. Linen changed. kc6 07:59 Cleaned of incontinence. Linen changed. aw1 10:30 Assisted provider with central line placement. Set up central line tray. Triple lumen kc6 line placed in left internal jugular. Line placed by Noman Bar MD Placement verified by blood return, Dressed with Tape, Tegaderm, Blood was collected. Patient tolerated well. Time-out/Briefing performed prior to start of procedure? Yes. Was handwashing/sanitizing done immediately prior to procedure? Yes. Was patient positioned to in a way to prevent air embolism? Yes. Was procedure site sterilized? Yes, with chlorhexidine. Was the site allowed to dry? Yes. Was local anesthetic and/or sedation utilized? Yes. During the procedure, did the Practitioner(s) maintain a sterile field? Yes. Were unused ports clamped during insertion? Yes. Was blood aspirated from each lumen? Yes. After the procedure, did the Practitioner(s) clean the site and apply a sterile dressing? Yes. 11:00 CXR XRAY In Process Unspecified. EDMS 11:50 Berhane Ríos MD is Hospitalizing Provider. sp3 14:42 Patient admitted, IV remains in place. kc6 Administered Medications: 10:20 Drug: LORazepam IM 2 mg IM once Route: IM; Site: right deltoid; nj1 11:00 Follow up: Response: No adverse reaction; Anxiety decreased; RASS: Drowsy (-1) kc6 11:56 Drug: Rocephin - Rocephin (cefTRIAXone) IVPB 1 grams IVPB once over 30 mins; (mix in 50 kc6 mL NS) Route: IVPB; Infused Over: 30 mins; Site: left jugular; 13:35 Follow up: Response: No adverse reaction; IV Status: Completed infusion; IV Intake: [id number] 11:56 Drug: NS 0.9% IV 1000 ml IV at 1 bolus Per protocol; 1000 mL bolus Route: IV; Rate: 1 kc6 bolus; Site: left jugular; 13:36 Follow up: Response: No adverse reaction; IV Status: Completed infusion; IV Intake: kc6 1000ml Medication: 14:42 VIS not applicable for this client. kc6 Intake: 13:35 IV: 50ml; Total: 50ml. kc6 13:36 IV: 1000ml; Total: 1050ml. kc6 Outcome: 11:50 Decision to Hospitalize by Provider. sp3 14:42 Admitted to ER Hold. Please see [facility] for further documentation. kc6 14:42 Condition: stable 14:42 Instructed on the need for admit, 17:14 Patient left the ED. kc6 Signatures: Dispatcher [employer] Kilo Barrera em1 Noman Bar MD MD sp3 Margareth Díaz RN RN kc6 Madelaine Norwood RN RN nj1 Lizzeth Monge aw1 Corrections: (The following items were deleted from the chart) 09:51 09:49 Reassessment: Geni (daughter) [phone] kc6 kc6
--- NOTE | 2024-04-07 13:23 | P.HP ---
Certification for Inpatient Patient admitted to: Inpatient With expected LOS: >2 Midnights Patient will require the following post-hospital care: Senior Care Practitioner: I am a practitioner with admitting privileges, knowledge of patient current condition, hospital course, and medical plan of care. Services: Services provided to patient in accordance with Admission requirements found in Title 42 Section 412.3 of the Code of Federal Regulations <Gabrielle Carolen - Last Filed: 04/07/24 14:53> Patient History Date of Service: 04/07/24 Primary Care Provider: Michael Reason for admission: Dehydration, UTI History of Present Illness: Ms. Galvin is a 83-year-old resident of [facility] with past medical history of left breast cancer, GERD, anxiety, dementia, neuropathy, protein calorie malnutrition, diabetes, and debility. She was sent to the ED for anuria x 2 days despite IV fluid given at [place]. Upon arrival to the emergency department she necessitated a central line for access. We will admit her for IV hydration and antibiotics to await culture results. Home medications list reviewed: Yes - Past Medical/Surgical History Has patient received pneumonia vaccine in the past: Yes Diabetic: No -: Dementia -: Back pain -: left breast cancer -: depression -: NIDDM -: calorie malnutrition -: Cervical neck surgery -: Knee replacement -: Breast Psychosocial/ Personal History: Lives at [facility]. DNR status - Social History Smoking Status: Unknown if ever smoked Alcohol use: No CD- Drugs: No Caffeine use: Yes Place of Residence: Shelter <Gabrielle Carolen - Last Filed: 04/07/24 14:53> Date of Service: 04/07/24 <Berhane Ríos - Last Filed: 04/07/24 16:07> Allergies morphine Allergy (Verified 12/04/19 09:54) UNK Sulfa (Sulfonamide Antibiotics) Allergy (Verified 12/04/19 09:54) UNK Home Medications: Calcium Carbonate/Vitamin D3 [Calcium 500-Vit D3 125 Caplet] 1 each PO DAILY 12/04/19 Docusate [Colace Cap*] 100 mg PO BID PRN 12/04/19 Donepezil [Aricept*] 10 mg PO DAILY 12/04/19 Duloxetine HCl [Cymbalta] 30 mg PO DAILY 12/04/19 Letrozole [Femara*] 2.5 mg PO DAILY 12/04/19 Multivit-Min/FA/Lycopen/Lutein [Centrum Silver Tablet] 1 each PO DAILY 12/04/19 Pantoprazole [Protonix Tab*] 40 mg PO DAILY 12/04/19 Amox/Clavulanate [Augmentin 875-125 Tab] 1 each PO BID #14 tab 12/06/19 guaiFENesin [Robitussin 100MG/5ML] 5 ml PO Q6HR PRN #1 ucup 12/06/19 Review of Systems 10-point ROS is otherwise unremarkable General: As per HPI Gastrointestinal: As per HPI Neurological: As per HPI <Gabrielle Caro - Last Filed: 04/07/24 14:53> Physical Examination - Physical Exam General: Cachectic, Demented, Other (opens eyes to voice. Moves hands) HEENT: Atraumatic, Normocephalic Neck: Supple Respiratory: Normal air movement Cardiovascular: No edema, Normal pulses Capillary refill: <2 Seconds Gastrointestinal: Hypoactive Musculoskeletal: No clubbing, Contractures Integumentary: No rashes Neurological: Abnormal tone, Abnormal affect Lymphatics: No axilla or inguinal lymphadenopathy External genitalia: Deferred Rectal: Deferred - Studies Laboratory Data (last 24 hrs) 04/07/24 04/07/24 10:50 07:38 WBC 8.60 Hgb 10.8 L Hct 32.4 L Plt Count 522 H Sodium 140 Potassium 3.4 L BUN 16 Creatinine 0.70 Glucose 89 Total Bilirubin 0.6 AST 24 ALT 21 Alkaline Phosphatase 113 Lipase 43 <Gabrielle Caro - Last Filed: 04/07/24 14:53> - Studies Laboratory Data (last 24 hrs) 04/07/24 04/07/24 10:50 07:38 WBC 8.60 Hgb 10.8 L Hct 32.4 L Plt Count 522 H Sodium 140 Potassium 3.4 L BUN 16 Creatinine 0.70 Glucose 89 Total Bilirubin 0.6 AST 24 ALT 21 Alkaline Phosphatase 113 Lipase 43 <Berhane Ríos - Last Filed: 04/07/24 16:07> Assessment and Plan - Plan Dehydration Normal saline at 100 mL/h Monitor and replete electrolytes Maintain left IJ with dressing change per protocol UTI UC Rocephin 1gm IV daily Dementia Continue home meds Diabetes Daily glucose monitoring Jevity Regular diet as per [place] Debility Patient participated in PT up to the level of max benefits and PT was DC'd 08/12/2023 Skin protection measures Air mattress Home meds include Depakene Obtain level secondary to dehydration VTE/GI prophylaxis teds/Protonix - Advance Directives Does patient have a Living Will: No Does patient have a Durable POA for Healthcare: No - Code Status/Comfort Care Code Status Assessed: Yes Code Status: Do Not Attempt Resuscitat <VaniaGabriellemarlo Bray - Last Filed: 04/07/24 14:53> - Plan Pt seen and examined. I agree with the note by the METAL SPRAYER. Pt is an 83 yo female with past medical history of Alzheimers, breast cancer, depression, breast cancer, DM II, and GERD who presents with lack of urinary output in 2 days. Pt did not allow EMS to place white catheter. On admission, lab studies show wbc 8.6, hgb 10.8, K 3.4, Cr 0.7 and glucose 89. UA is positive for UTI. At bedside, pt is confused due to dementia. A/P: Urinary retention: Will continue white catheter. UTI: Will continue rocephin and f/u urine cx. Hypokalemia: K is 3.4. Will replete and monitor. Volume depletion: Will continue IVF. Hx of Dementia: Continue supportive care. DVT ppx: SCD Code: full <Berhane Ríos - Last Filed: 04/07/24 16:07>
[2024-04-07] MEDS: NA CHLORIDE 0.9% 1,000 ML IV SCH (14:00)
[2024-04-07] MEDS: POTASSIUM CL SA 10 MEQ TAB PO ONE (14:15)
[2024-04-07] MEDS ORDERED: LACTULOSE 20 GM/30 ML UCUP PO PRN (14:22)
[2024-04-07] MEDS ORDERED: SODIUM CHLORIDE 0.9% 10ML INJ IV PRN (14:22)
[2024-04-07 17:26] VITALS: O2SAT 100
[2024-04-07] MEDS: HYDROCOD 2.5mg-ACETAMIN 108mg/5mL Soln PO PRN (18:27)
[2024-04-07 19:22] VITALS: BMI 22.8
[2024-04-07] MEDS: POTASSIUM 25 MEQ EFFERV TAB PO ONE (19:39)
[2024-04-07] MEDS: MEMANTINE HCL 10 MG TABLET PO SCH (19:39)
[2024-04-07] MEDS: DONEPEZIL HCL 5 MG TAB PO SCH (19:39)
[2024-04-07] MEDS: GABAPENTIN 100 MG CAP PO SCH (19:39)
[2024-04-07] MEDS: BUSPIRONE HCL 5 MG TABLET PO SCH (19:40)
[2024-04-07] MEDS: DOCUSATE NA 100 MG CAP PO SCH (19:40)
[2024-04-07] MEDS: MIRTAZAPINE 15 MG TAB PO SCH (19:40)
[2024-04-07] MEDS: VALPROIC ACID 250 MG/5 ML OSYR PO SCH (19:40)
[2024-04-07] MEDS: JEVITY 1.2 CAL LIQUID 1,000 ML BOT RTH SCH (23:57)
[2024-04-08 08:27] LABS: Absolute Eosinophils 0.2 K/uL (0-0.5); Absolute Monocytes 0.8 K/uL (0.1-1.3); Absolute Neutrophil 5.1 K/uL (1.8-8.0); Basophils % 0.5 % (0-1.3); Eosinophils % 2.9 % (0-4.4); Hematocrit 25.2 % (36.0-45.0); Hemoglobin 8.5 g/dL (12.0-15.0); Lymphocytes % 24.2 % (15.3-44.8); MCH 32.6 pg (27.0-35.0); MCHC 33.5 g/dL (32.0-36.0); MCV 97.1 fL (80-100); MPV 7.9 fL (7.6-11.3); Monocytes % 9.4 % (3.3-12.3); Platelets 421 thou/uL (152-406); Red Cell Distribution Width 14.3 % (12.1-15.2)
[2024-04-08 08:44] LABS: Albumin 2.1 g/dL (3.4-5.0); Albumin/Globulin Ratio 0.5 (1.1-1.8); Anion Gap 4.8 mEq/L (5.0-15.0); Bilirubin Total 0.4 mg/dL (0.2-1.0); Globulin 4.5 g/dL (2.3-3.5); Magnesium 1.9 mg/dL (1.6-2.4); Phosphorus 2.9 mg/dL (2.5-4.9); Potassium 3.8 mEq/L (3.5-5.1); Protein, Total 6.6 g/dL (6.4-8.2)
[2024-04-08] MEDS: ASPIRIN EC 81 MG TAB PO SCH (09:01)
[2024-04-08] MEDS: METFORMIN HCL 500 MG TAB PO SCH (09:01)
[2024-04-08] MEDS: CITALOPRAM 10 MG TABLET PO SCH (09:01)
[2024-04-08] MEDS: LETROZOLE 2.5 MG TAB PO SCH (09:02)
[2024-04-08] MEDS: LACTOBACILLUS/ACIDOPHILUS TAB PO SCH (09:02)
[2024-04-08] MEDS: PANTOPRAZOLE 40 MG INJ IVP SCH (09:02)
[2024-04-08] MEDS: CEFTRIAXONE 1,000 MG in NA CHLORIDE 0.9% 50 ML IVPB SCH (09:02)
[2024-04-08] MEDS: CALCIUM CARB 500MG/VIT D 200 IU TAB PO SCH (09:23)
--- NOTE | 2024-04-08 10:25 | P.PN ---
Subjective Date of Service: 04/08/24 Primary Care Provider: Michael Chief Complaint: Dehydration, UTI Pt is resting comfortably in bed. She tried to pull out her PICC line. Will place soft mitten. Continue IVF. No other issues overnight. Review of Systems is unable to be obtained Physical Examination - Vital Signs Temperature: 98.0 F Blood Pressure: 110/58 Pulse: 84 Respirations: 14 Pulse Ox (%): 94 - Physical Exam General: In no apparent distress, Confused HEENT: Atraumatic, Normocephalic Neck: Supple, 2+ carotid pulse no bruit Respiratory: Clear to auscultation bilaterally, Normal air movement Cardiovascular: No edema, Normal pulses, Regular rate/rhythm, Normal S1 S2 Capillary refill: <2 Seconds Gastrointestinal: Normal bowel sounds, Soft and benign, Non-distended Musculoskeletal: No clubbing, No swelling, No contractures Integumentary: No rashes, No breakdown, No significant lesion Neurological: Normal speech, Normal strength at 5/5 x4 extr, Normal tone Lymphatics: No axilla or inguinal lymphadenopathy - Studies Laboratory Data (last 24 hrs) 04/07/24 10:50 Sodium 140 Potassium 3.4 L BUN 16 Creatinine 0.70 Glucose 89 Total Bilirubin 0.6 AST 24 ALT 21 Alkaline Phosphatase 113 Lipase 43 Assessment And Plan - Plan Urinary retention: Will continue white catheter. UTI: Will continue rocephin and f/u urine cx. Hypokalemia: K is 3.4. Will replete and monitor. Anemia: Hgb is 8.5. Will monitor H/H. Volume depletion: Will continue IVF. Agitation: Will place soft mittens on hands in order to prevent her from pulling out the PICC line. Hx of Dementia: Continue supportive care. DVT ppx: SCD Code: full
[2024-04-09 06:28] LABS: Absolute Eosinophils 0.2 K/uL (0-0.5); Absolute Lymphocytes (CBC) 2.2 K/uL (0.7-4.9); Absolute Monocytes 0.8 K/uL (0.1-1.3); Absolute Neutrophil 4.8 K/uL (1.8-8.0); Basophils % 0.3 % (0-1.3); Eosinophils % 2.7 % (0-4.4); Hematocrit 24.7 % (36.0-45.0); Hemoglobin 8.3 g/dL (12.0-15.0); Lymphocytes % 27.2 % (15.3-44.8); MCH 32.5 pg (27.0-35.0); MCHC 33.6 g/dL (32.0-36.0); MCV 96.7 fL (80-100); MPV 7.6 fL (7.6-11.3); Monocytes % 10.3 % (3.3-12.3); Neutrophils % 59.5 % (41.7-73.7); Nucleated Red Blood Cells % 0.1 % (0-0); Platelets 385 thou/uL (152-406); RBC Red Blood Cell Count 2.56 M/uL (3.86-4.86); Red Cell Distribution Width 14.2 % (12.1-15.2)
[2024-04-09 06:44] LABS: Albumin 2.1 g/dL (3.4-5.0); Albumin/Globulin Ratio 0.5 (1.1-1.8); Anion Gap 5.9 mEq/L (5.0-15.0); Bilirubin Total 0.3 mg/dL (0.2-1.0); Globulin 4.4 g/dL (2.3-3.5); Magnesium 1.8 mg/dL (1.6-2.4); Phosphorus 2.7 mg/dL (2.5-4.9); Potassium 3.9 mEq/L (3.5-5.1); Protein, Total 6.5 g/dL (6.4-8.2)
[2024-04-09] MEDS: AMOX/CLAV 200 MG/5 ML ORAL SUSP (100 ML BTL) PO SCH (08:53)
--- NOTE | 2024-04-09 10:34 | P.DS ---
Admission Date: 04/07/24 Discharge Date: 04/09/24 Primary Care Provider: Michael Reason for Admission: Dehydration, UTI Consultations: none Procedures: IJ central line Brief History of Present Illness: Ms. Galvin is a 83-year-old resident of [facility] with past medical history of left breast cancer, GERD, anxiety, dementia, neuropathy, protein calorie malnutrition, diabetes, and debility. She was sent to the ED for anuria x 2 days despite IV fluid given at [facility]. Upon arrival to the emergency department she necessitated a central line for access. We will admit her for IV hydration and antibiotics to await urine culture results. Hospital Course: Ms. Galvin is alert, nonverbal, is tolerating p.o., and has been receiving Rocephin IV for a urinary tract infection. The cultures have returned with E. coli that is sensitive to Augmentin. As she is taking p.o., electrolytes have stabilized, and she is more alert and back to her baseline, she will be disc harged back to [facility] today with oral antibiotic therapy. <Gabrielle Caro - Last Filed: 04/09/24 10:20> Admission Date: 04/07/24 Discharge Date: 04/09/24 Hospital Course: Pt seen and examined. I agree with the note by the SEISMIC ENGINEER. Pt was rehydrated with IVF. Continue abx. Ok to discharge pt to SNF. <Berhane Ríos - Last Filed: 04/09/24 10:47> Disposition: TRANSFER TO RESIDENTIAL Discharge Condition: FAIR Vital Signs/Physical Exam: Temp Pulse Resp BP Pulse Ox 98.2 F 83 16 130/65 98 04/09/24 04:00 04/09/24 04:00 04/09/24 04:00 04/09/24 04:00 04/09/24 04:00 General: Alert, Demented HEENT: Atraumatic, Normocephalic Neck: Supple Respiratory: Normal air movement Cardiovascular: Normal pulses, Regular rate/rhythm Capillary refill: <2 Seconds Gastrointestinal: Soft and benign Musculoskeletal: No clubbing Integumentary: No rashes Neurological: Normal speech, Normal tone, Dementia Lymphatics: No axilla or inguinal lymphadenopathy External genitalia: Deferred Rectal: Deferred Laboratory Data at Discharge: WBC 8.00 thou/uL (4.3-10.9) 04/09/24 06:05 Hgb 8.3 g/dL (12.0-15.0) L 04/09/24 06:05 Hct 24.7 % (36.0-45.0) L 04/09/24 06:05 Plt Count 385 thou/uL (152-406) 04/09/24 06:05 Sodium 142 mEq/L (136-145) 04/09/24 06:05 Potassium 3.9 mEq/L (3.5-5.1) 04/09/24 06:05 BUN 10 mg/dL (7-18) 04/09/24 06:05 Creatinine 0.68 mg/dL (0.55-1.02) 04/09/24 06:05 Glucose 100 mg/dL (74-106) 04/09/24 06:05 Phosphorus 2.7 mg/dL (2.5-4.9) 04/09/24 06:05 Magnesium 1.8 mg/dL (1.6-2.4) 04/09/24 06:05 Total Bilirubin 0.3 mg/dL (0.2-1.0) 04/09/24 06:05 AST 15 U/L (15-37) 04/09/24 06:05 ALT 15 U/L (13-56) 04/09/24 06:05 Alkaline Phosphatase 98 U/L (45-117) 04/09/24 06:05 Lipase 43 U/L (13-75) 04/07/24 10:50 <Caro,Gabrielle Asa - Last Filed: 04/09/24 10:20> Vital Signs/Physical Exam: Temp Pulse Resp BP Pulse Ox 97.0 F 86 14 134/78 95 04/09/24 08:00 04/09/24 08:00 04/09/24 08:00 04/09/24 08:00 04/09/24 08:00 Laboratory Data at Discharge: WBC 8.00 thou/uL (4.3-10.9) 04/09/24 06:05 Hgb 8.3 g/dL (12.0-15.0) L 04/09/24 06:05 Hct 24.7 % (36.0-45.0) L 04/09/24 06:05 Plt Count 385 thou/uL (152-406) 04/09/24 06:05 Sodium 142 mEq/L (136-145) 04/09/24 06:05 Potassium 3.9 mEq/L (3.5-5.1) 04/09/24 06:05 BUN 10 mg/dL (7-18) 04/09/24 06:05 Creatinine 0.68 mg/dL (0.55-1.02) 04/09/24 06:05 Glucose 100 mg/dL (74-106) 04/09/24 06:05 Phosphorus 2.7 mg/dL (2.5-4.9) 04/09/24 06:05 Magnesium 1.8 mg/dL (1.6-2.4) 04/09/24 06:05 Total Bilirubin 0.3 mg/dL (0.2-1.0) 04/09/24 06:05 AST 15 U/L (15-37) 04/09/24 06:05 ALT 15 U/L (13-56) 04/09/24 06:05 Alkaline Phosphatase 98 U/L (45-117) 04/09/24 06:05 Lipase 43 U/L (13-75) 04/07/24 10:50 <Berhane Ríos - Last Filed: 04/09/24 10:47> Diet: Regular Activity: Fall precautions <Caro,Gabrielle Asa - Last Filed: 04/09/24 10:20> <Berhane Ríos - Last Filed: 04/09/24 10:47> Home Medications: Letrozole [Femara*] 2.5 mg PO DAILY 12/04/19 Pantoprazole [Protonix Tab*] 40 mg PO DAILY 12/04/19 Acetaminophen [Tylenol] 2 tab PO PRN PRN 04/07/24 Aspirin 81 mg PO DAILY 04/07/24 Buspirone HCl [Buspar] 10 mg PO BID 04/07/24 Calcium Carbonate/Vitamin D3 [Calcium 500-Vit D3 400 Tablet] 1 each PO DAILY 04/07/24 Citalopram Hydrobromide [Celexa] 20 mg PO DAILY 04/07/24 Donepezil HCl [Aricept] 10 mg PO BEDTIME 04/07/24 Gabapentin 100 mg PO BID 04/07/24 Hydrocodone Bit/Acetaminophen [Hydrocodon-Acetaminophn 10-325] 10 - 325 mg PO PRN PRN 04/07/24 Memantine HCl [Namenda*] 10 mg PO BID 04/07/24 Metformin HCl [Glucophage] 500 mg PO BIDWM 04/07/24 Mirtazapine 7.5 mg PO BEDTIME 04/07/24 Mirtazapine 15 mg PO BEDTIME 04/07/24 Ondansetron [Zofran (Odt)*] 4 mg PO PRN PRN 04/07/24 Valproic Acid Syrup [Depakene Syrup] 250 mg PO BID 04/07/24 fentaNYL [Fentanyl] 12 mcg TD Q72H 04/07/24 Amox/Clavulanate [Augmentin 875-125 Tab] 1 each PO BID #17 tab 04/09/24 New Medications: Amox/Clavulanate [Augmentin 875-125 Tab] 1 each PO BID #17 tab Physician Discharge Instructions: Ms. Galvin is alert, nonverbal, is tolerating p.o., and has been receiving Rocephin IV for a urinary tract infection. The cultures have returned with E. coli that is sensitive to Augmentin. As she is taking p.o., electrolytes have stabilized, and she is more alert and back to her baseline, she will be discharged back to [facility] today with oral antibiotic therapy. Okay to DE IV and DC home to [facility] Will take Augmentin 875mg po BID x 8 days Follow-up with primary care provider Please call the inpatient unit for any questions or concerns regarding hospital stay Return to the ER for worsening symptoms Followup: Troy Rodriguez MD [Primary Care Provider] -
[2024-04-09 14:04] VITALS: BP 133/61; TEMP 98.2
== END 2024-04-09 13:52 | DRG 690 ==
LOC: ER 07:17 → ERHOLD 13:06 → 2ND 16:45
PROVIDERS: ADMIT Hospitalist; ATTEND Hospitalist
PROC: 0T9B70Z Drainage of Bladder with Drainage Device, Via Natural or Artificial Opening (ICD-10-PCS; principal; 2024-04-07)
PROC: 02HV33Z Insertion of Infusion Device into Superior Vena Cava, Percutaneous Approach (ICD-10-PCS; 2024-04-07)
DX: N39.0 Urinary tract infection, site not specified (principal); R64 Cachexia; F02.811 Dementia in other diseases classified elsewhere, unspecified severity, with agitation; G30.9 Alzheimer's disease, unspecified; E86.0 Dehydration; E87.6 Hypokalemia; E86.9 Volume depletion, unspecified; E11.40 Type 2 diabetes mellitus with diabetic neuropathy, unspecified; K21.9 Gastro-esophageal reflux disease without esophagitis; B96.20 Unspecified Escherichia coli [E. coli] as the cause of diseases classified elsewhere; R33.9 Retention of urine, unspecified; Z66 Do not resuscitate; Z78.1 Physical restraint status; Z88.2 Allergy status to sulfonamides; Z88.5 Allergy status to narcotic agent; Z85.3 Personal history of malignant neoplasm of breast; Z68.22 Body mass index [BMI] 22.0-22.9, adult; Z96.659 Presence of unspecified artificial knee joint; Z79.899 Other long term (current) drug therapy
CPT/HCPCS: 36415; 71045; 80053; 80164; 81001; 82947; 83605; 83690; 83735; 84100; 84443; 85025; 87077; 87086; 87088; 87186; 96365; 96366; 96372; 99285; C9113; J0696; J7030